=== PATIENT | male | born 1960 | race African-American/Black ===

== ENCOUNTER 2016-10-06 20:41 | Inpatient (IN) | payer OTHER ==
[2016-10-06 21:53] LABS: Hematocrit 41 % (42-52); Hemoglobin 13.5 g/dl (14.0-18.0); Mean Corpuscular HGB Conc 33 g/dl (31-36); Mean Corpuscular Hemoglobin 28 pg (27-31); Mean Corpuscular Volume 86 fL (80-94); Mean Platelet Volume 9 um3 (7.4-10.4); Red Blood Count 4.79 10^6/ul (4.0-5.4); Red Cell Distribution Width 16 % (10.5-15); White Blood Count 7.6 10^3/ul (3.5-10.8)
[2016-10-06 22:02] LABS: ALT 21 U/L (7-52); AST 39 U/L (13-39); Alkaline Phosphatase 71 U/L (34-104); Anion Gap 9 mmol/L (2-11); BUN/Creatinine Ratio 14.2 (8-20); Blood Urea Nitrogen 19 mg/dL (6-24); CO2 Carbon Dioxide 24 mmol/L (22-32); Calcium 9.2 mg/dL (8.6-10.3); Chloride 102 mmol/L (101-111); EGFR African American 71.2 (>60); EGFR Non-African American 55.3 (>60); Globulin 3.2 g/dL (2-4); Glucose 142 mg/dL (70-100); Potassium 3.4 mmol/L (3.5-5.0); Sodium 135 mmol/L (133-145); Total Protein 7.2 g/dL (6.4-8.9)
[2016-10-06 22:05] LABS: Acetaminophen < 15 mcg/mL; Alcohol < 10 mg/dL (<10); Salicylate < 2.50 mg/dL (<30)
[2016-10-06 22:15] LABS: TSH (Thyroid Stimulating Horm) 1.42 mcIU/mL (0.34-5.60)
--- NOTE | 2016-10-06 22:27 | RAD ---
INDICATION: Altered mental status COMPARISON: None TECHNIQUE: Noncontrast axial source images were acquired from the skull base to the vertex. FINDINGS: Ventricles/sulci: The ventricles and cisterns are normal in size and configuration for age. Brain parenchyma: There is no focal parenchymal finding, evidence of intracranial mass, or intracranial mass effect. Intracranial hemorrhage:None. Extra-axial spaces: There are no abnormal extra axial fluid collections or evidence of extra-axial mass. Calvarium: There is no calvarial fracture or other calvarial abnormality. Scalp: There is no evidence of scalp or extracalvarial soft tissue abnormality. Paranasal sinuses/mastoid: The paranasal sinuses and mastoid air cells are clear. Other: None. IMPRESSION: NEGATIVE EXAMINATION
--- NOTE | 2016-10-06 22:37 | ED ---
Fely Wade Michael, scribed for Blayne Finley MD on 10/06/16 at 2158 . Altered Mental Status - HPI Summary HPI Summary: 55 y/o male comes to the ED presenting with AMS that started one day ago. The pt 's sister was beside and reports that the pt was found walking on a highway in [place] by police. The sister received the call and picked him up in [place] and brought him to [place] because she is currently stationed in [place]. 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 Any aggravating and alleviating factors are unknown. He also presents with swelling in his right foot. The pt is former . 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 - History Of Current Complaint Chief Complaint: EDMentalHealth Stated Complaint: MHE Time Seen by Provider: 10/06/16 21:45 Hx Obtained From: Family/Mold Carrier - sister, Medical Records Hx From Patient Unobtainable Due To: Altered Mental Status Onset/Duration: Still Present Timing: Constant, Lasting Days Severity Initially: Moderate Severity Currently: Moderate Character: Responsiveness Aggravating Factor(s): Unknown Alleviating Factor(s): Unknown Associated Signs And Symptoms: Negative: Negative - right foot swelling. AMS. - Allergies/Home Medications Allergies/Adverse Reactions: Allergies Allergy/AdvReac Type Severity Reaction Status Date / Time No Known Allergies Allergy Verified 10/06/16 20:52 PMH/Surg Hx/FS Hx/Imm Hx Psychiatric History: Reports: Hx Depression, Hx Post Traumatic Stress Disorder Infectious Disease History: No Infectious Disease History: Denies: Traveled Outside the [place] in Last 30 Days - Family History Known Family History: Positive: None Family History: pt's sister karma FHx - Social History Occupation: Retired Lives: Alone Review of Systems - ROS Summary Review of Systems Summary: level 5 caveat; Patient will not give Review of systems. Mental health patient. Negative: Fever Positive: Other - right foot swelling. Neurological: Other - AMS All Other Systems Reviewed And Are Negative: Yes Physical Exam Triage Information Reviewed: Yes Vital Signs On Initial Exam: Initial Vitals Temp Pulse Resp BP Pulse Ox 98.4 F 69 16 143/94 98 10/06/16 20:45 10/06/16 20:45 10/06/16 20:45 10/06/16 20:45 10/06/16 20:45 Vital Signs Reviewed: Yes Appearance: Positive: Well-Appearing, No Pain Distress Skin: Positive: Warm Diagnostics - Vital Signs Vital Signs Temp Pulse Resp BP Pulse Ox 10/06/16 20:45 98.4 F 69 16 143/94 98 - Laboratory Lab Results: Lab Results 10/06/16 10/06/16 Range/Units 21:15 21:15 WBC 7.6 (3.5-10.8) 10^3/ul RBC 4.79 (4.0-5.4) 10^6/ul Hgb 13.5 L (14.0-18.0) g/dl Hct 41 L (42-52) % MCV 86 (80-94) fL MCH 28 (27-31) pg MCHC 33 (31-36) g/dl RDW 16 H (10.5-15) % Plt Count 229 (150-450) 10^3/ul MPV 9 (7.4-10.4) um3 Neut % (Auto) 65.6 (38-83) % Lymph % (Auto) 25.9 (25-47) % Crowley % (Auto) 6.4 (1-9) % Eos % (Auto) 1.4 (0-6) % Baso % (Auto) 0.7 (0-2) % Absolute Neuts (auto) 5.0 (1.5-7.7) 10^3/ul Absolute Lymphs (auto) 2.0 (1.0-4.8) 10^3/ul Absolute Monos (auto) 0.5 (0-0.8) 10^3/ul Absolute Eos (auto) 0.1 (0-0.6) 10^3/ul Absolute Basos (auto) 0.1 (0-0.2) 10^3/ul Absolute Nucleated RBC 0 10^3/ul Nucleated RBC % 0 Sodium 135 (133-145) mmol/L Potassium 3.4 L (3.5-5.0) mmol/L Chloride 102 (101-111) mmol/L Carbon Dioxide 24 (22-32) mmol/L Anion Gap 9 (2-11) mmol/L BUN 19 (6-24) mg/dL Creatinine 1.34 H (0.67-1.17) mg/dL Est GFR ( Amer) 71.2 (>60) Est GFR (Non-Af Amer) 55.3 (>60) BUN/Creatinine Ratio 14.2 (8-20) Glucose 142 H (70-100) mg/dL Calcium 9.2 (8.6-10.3) mg/dL Total Bilirubin 0.90 (0.2-1.0) mg/dL AST 39 (13-39) U/L ALT 21 (7-52) U/L Alkaline Phosphatase 71 (34-104) U/L Total Protein 7.2 (6.4-8.9) g/dL Albumin 4.0 (3.2-5.2) g/dL Globulin 3.2 (2-4) g/dL Albumin/Globulin Ratio 1.3 (1-3) TSH 1.42 (0.34-5.60) mcIU/mL Salicylates < 2.50 (<30) mg/dL Acetaminophen < 15 mcg/mL Serum Alcohol < 10 (<10) mg/dL Result Diagrams: 10/06/16 21:15 10/06/16 21:15 Lab Statement: Any lab studies that have been ordered have been reviewed, and results considered in the medical decision making process. - CT Brain CT CT Interpretation: No Acute Changes CT Interpretation Completed By: Radiologist Altered Mental Statu Course/Dx - Course Course Of Treatment: 55 yr old male found wandering, car missing. He has PTSD from being in with depression. He was carrying a sign saying need ride to next exit: [place], [place]. Mental health to see for further evaluations. - Diagnoses Discharge Diagnoses: Altered mental status, unspecified, Catatonia Discharge - Discharge Plan Condition: Good Disposition: OTHER Discharge Disposition Comment: sign out to dr Howard at 2300 with xrays, and psych eval pending. The documentation as recorded by the Fely logan Michael accurately reflects the service I personally performed and the decisions made by me, Blayne Finley MD.
--- NOTE | 2016-10-06 22:48 | RAD ---
INDICATION: Change in mental status. PTSD COMPARISON: None TECHNIQUE: PA and lateral views were obtained. FINDINGS: Bones/Soft Tissues: There are no acute bony findings. Cardiomediastinal: The cardiomediastinal silhouette is normal. Lungs: There are no infiltrates. Pleura: There are no pleural effusions. Other: None IMPRESSION: NO ACTIVE DISEASE.
--- NOTE | 2016-10-06 22:49 | RAD ---
INDICATION: Right ankle swelling COMPARISON: None TECHNIQUE: AP, lateral, and oblique views were obtained. FINDINGS: There is an old, healed, distal fibular fracture. There are no acute bony findings. The ankle mortise is intact. There is no significant radiographic soft tissue swelling. IMPRESSION: NO ACUTE BONY FINDINGS.
--- NOTE | 2016-10-06 22:50 | RAD ---
INDICATION: Possible pelvic injury COMPARISON: None TECHNIQUE: A single AP view of the pelvis is submitted. FINDINGS: Osseous structures: No acute bony findings SI joints and symphysis: Intact Soft tissues: Intact Other: None IMPRESSION: NEGATIVE EXAMINATION.
--- NOTE | 2016-10-06 22:50 | RAD ---
INDICATION: Possible foot injury COMPARISON: None TECHNIQUE: AP, lateral, and oblique views were obtained. FINDINGS: The bony structures, joint spaces, and soft tissues are normal for age. IMPRESSION: NEGATIVE EXAMINATION
[2016-10-07] LABS: Urine Bilirubin Negative (Negative); Urine Glucose Negative (Negative); Urine Nitrite Negative (Negative)
[2016-10-07 00:37] LABS: Benzodiazepine Urine Screen None Detected (None Detect)
[2016-10-07] MEDS ORDERED: BuPROPion XL* 150 MG TAB.XL PO ONE (14:07)
[2016-10-07] MEDS ORDERED: Sertraline* 50 MG TAB PO ONE (14:09)
--- NOTE | 2016-10-07 18:42 | PN ---
I, Michael Bautista, scribed for Jyothi Jones MD on 10/07/16 at 1140 . Progress Note - Progress Note Note: Patient signed out at shift change. Elevated blood pressure and creatinine noted. Patient evaluated in the flex unit. He is nonverbal, in no acute distress , RRR, lungs are clear to auscultation. Patient will be transferred to the [facility] in [place]. His mother is in the room and agrees with this plan. X-rays of his foot, ankle, pelvis, and chest were reviewed and negative for acute disease. EKG reviewed, NSR 64, nml AV and IV conduction, normal QTc, normal axis, TWI in III, non-specific ST/T-wave changes, no acute changes. No prior EKG for comparison. Patient was re-evaluated at 1350. Mother states that the neck pain he has at this time is normal for him. However, he needs to have his daily medication of 300mg bupropion and 50mg zoloft. 1838: Per Dinorah in Flex unit, will check K+ and CK. She will ask Dr. Montanez to attempt mental status exam, and then may give lorazepam po for catatonia per [facility], per Dinorah. Care to Dr. Aragon at 1900 at change of shift. DIAGNOSIS: CATATONIA, ALTERED MENTAL STATUS CONDITION: STABLE DISPOSITION: TRANSFER TO HIGHER LEVEL OF CARE FACILITY The documentation as recorded by the Michele logan Billy accurately reflects the service I personally performed and the decisions made by me, Jyothi Jones MD.
[2016-10-07] MEDS ORDERED: LORazepam TAB(*) 1 MG PO ONE ×2 (20:00→22:15)
--- NOTE | 2016-10-07 20:43 | PN ---
Progress Note - Progress Note Note: Mental Status Exam Mr Gallego is dressed in hospital scrubs. He has no signs of poor hygiene. He has grooming adequate to the setting and circumstance. He will not demonstrate clearly his orientation to person, place and time because he will not speak. He will not make eye contact. He will not report his mood nor whether he has any hallucinations or dangerous intent or plan. His affect is flat. His thought process is not ascertainable as he will not speak, though it appears impoverished per his overall behavior pattern, which is limited to sitting, eating small amounts of food, and toileting. He has normal gait and sits calmly with his mother. Attention, memory and overall intellectual functioning are likewise impossible to assess at this point as he has been entirely mute for the past 48 hours or more.
[2016-10-07] MEDS ORDERED: LORazepam TAB(*) 1 MG PO SCH (21:00)
--- NOTE | 2016-10-08 | ED ---
Robert Wade Adam, scribed for Jose Aragon on 10/07/16 at 2056 . Progress - Progress Note Progress Note: I discussed care of the patient with Dr. Eubanks (Neuro) at 20:45. He recommends that an EEG be done in the morning and he will come in for a consult in the morning as well. Course/Dx - Diagnoses Provider Diagnoses: Catatonia, Altered mental status, unspecified The documentation as recorded by the Robert logan Adam accurately reflects the service I personally performed and the decisions made by Margo mtz Emmanuel.
[2016-10-08] MEDS ORDERED: LORazepam TAB(*) 1 MG ONE (09:34)
[2016-10-08] MEDS ORDERED: traMADol TAB* 50 MG PO PRN (11:00)
[2016-10-08 15:08] LABS: Potassium 3.8 mmol/L (3.5-5.0)
--- NOTE | 2016-10-08 15:10 | CONS ---
NEUROLOGICAL CONSULTATION: DATE OF CONSULT: DATE OF DICTATION: 10/08/16 PATIENT OF: Dr. Aragon and Dr. Montanez. HISTORY OF PRESENT ILLNESS: This is a 55-year-old man I am asked to evaluate neurologically prior to a transfer to an outside psych center. History is from the sister and mother. His was left in the house to take care of her own mother, who has Alzheimer's. The patient has also been stressed because of some real estate property issues. The became aware that the patient was not at home and contacted his family up in [place], who went down to [place], to try to find him. In the interim, he was found walking on a highway in [place] by the police with a cardboard sign and they brought him up here for further psychiatric care. 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 He has had no prior episodes of catatonia. They note that he will interact with the family opening eyes on request and following some simple commands, but not speaking. He will also get up to go to the bathroom and to take a shower, but he is uncooperative with staff and since then, he does not respond and he has had some ongoing catatonic symptoms. PAST MEDICAL HISTORY: There has been no underlying medical problems that are known. MEDICATIONS: He is on: 1. Wellbutrin 300 a day currently. 2. Ativan 1 mg q.3 hours p.r.n. 3. Zoloft 50 mg daily. 4. Tramadol 50 mg q.8 hours p.r.n. ALLERGIES: He has no known drug allergies. FAMILY HISTORY: He has no relevant family history. SOCIAL HISTORY: He is retired. Has a , but apparently lives alone. There is only a brief note from Dr. Montanez, the psychiatrist, from October 07, but no _ ____ in the chart at this time. REVIEW OF SYSTEMS: He is unable to give a review of systems himself. PHYSICAL EXAM: Temperature 98.4, pulse 69, respirations 16, blood pressure 143/ 94. He appeared to be resting with his eyes closed. He did not follow any commands. Pupils were equal, round, reactive to light. 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 When I put his arm in a particular position, he would hold it, but he would not follow any commands. His strength in both extremities was at least 5-/5 and cannot be tested further due to lack of cooperation. Facies appeared symmetric. Reflexes were 1 and equal. Toes were equivocal to downgoing. Neck was supple. Chest: Clear. Cardiovascular: Regular rate and rhythm. Abdomen: Soft with positive bowel sounds. DIAGNOSTIC STUDIES/LAB DATA: His EEG was normal during the stay and appeared to be at one point awake and at another point asleep during the EEG. His CT scan was reviewed and was normal. He had a negative UA, negative tox screen, and alcohol screen. His CMP appeared normal with a glucose of 142. Normal thyroid. White count was 7.6, hematocrit 41, and platelets 229,000. IMPRESSION AND PLAN: Mr. Gallego did not have any apparent structural lesion or tendency towards seizure that would explain his recurrent condition, which I think is most likely secondary to psychiatric issues. Thank you for sharing his case. [id number]/[facility] #: [id number] ISMAEL
--- NOTE | 2016-10-08 18:15 | RAD ---
Indication: Inability to speak. CT of the brain was performed without IV contrast. Comparison is made with previous exam dated October 06, 2016. Ventricular structures are midline. No midline shift is noted. The extraction spaces are unremarkable. There is no evidence of intracranial mass or hemorrhage. No other high or low density lesions are identified. Mastoid air cells and paranasal sinuses are unremarkable. IMPRESSION: No intracranial mass or hemorrhage is noted. No changes noted since previous exam of October 06, 2016.
[2016-10-08 18:37] LABS: Troponin I 0.01 ng/mL (<0.04)
--- NOTE | 2016-10-09 02:47 | EEG ---
ELECTROENCEPHALOGRAPHY: DATE OF STUDY: 10/06/16 - EMERGENCY DEPT DATE OF DICTATION: 10/08/16 PATIENT OF: Dr. Montanez. CLINICAL PROBLEM: This is a 55-year-old man I am asked to evaluate for catatonia and cerebral seizures. MEDICATIONS: None listed. REPORT: With the patient awake, background cerebral activity consists of moderate amplitude posterior dominant 8 Hz rhythm. The patient falls asleep with background consisting of diffuse irregular delta and theta activity. Photic stimulation does not activate the record. No epileptiform potentials, focal abnormalities, or major asymmetries of background are noted. CLINICAL IMPRESSION: This awake and sleep EEG is within normal limits. [id number]/[facility] #: [id number] [facility]
--- NOTE | 2016-10-09 08:18 | PN ---
Progress Note - Progress Note Note: Mr Gallego remains mute, cried with family this morning. Family feels there has been a trigger back to PTSD symptoms. Family remain concerned that he needs inpatient hospitalization. Has not been receiving all of his usual medications per updated medication reconciliation by flex staff this morning: these will be ordered once confirmed. I have been following Mr Gallego daily from Sunday evening. ON each encounter he has remained as described in my documented mental status examination. Family has been with him throughout. I have reviewed medical reexaminations done 10.08.16, I appreciate Dr Eubanks's neurological consult finding no indications of a neurological component to his mutism and no sign of seizure activity with negative EEG. 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
[2016-10-09] MEDS: LORazepam TAB(*) 1 MG PO SCH ×4 (08:26→21:05)
[2016-10-09] MEDS: Sertraline* 50 MG TAB PO SCH (08:27)
[2016-10-09] MEDS: oxyCODONE/Acetamin 5/325 MG* TAB PO SCH ×2 (13:22→21:05)
[2016-10-10] MEDS ORDERED: BuPROPion XL* 150 MG TAB.XL PO SCH (09:00)
[2016-10-10] MEDS: Sertraline* 50 MG TAB PO SCH ×2 (09:52→09:53)
[2016-10-10] MEDS: oxyCODONE/Acetamin 5/325 MG* TAB PO SCH (09:59)
[2016-10-10] MEDS ORDERED: Docusate CAP* 100 MG PO PRN (12:08)
[2016-10-10] MEDS ORDERED: Al Hydrox/Mg Hydrox/Simet LIQ* 30 ML UDC PO PRN (17:27)
[2016-10-10] MEDS ORDERED: Nicotine Inhaler* 10 MG AMP INH PRN (17:27)
--- NOTE | 2016-10-10 17:27 | PN ---
Progress Note - Progress Note Note: Robbin Salas continues mute, though ED nursing staff reports he communicated request for pain med by text on his phone. When I met with him before I was contacted by ED nurse, he remained mute and noncommunicative, but in no apparent distress by kinesics. I discussed with his mother the open bed at [facility] if she would agree, as [facility] had made this a condition of admission. She did not agree. As there is a bed open on the [facility] and as no other option for transfer is now available after the [facility] reports their unit is now too acute to take that patient after requiring multiple tests and consultations as a condition of admission there.
[2016-10-10] MEDS: oxyCODONE/Acetamin 5/325 MG* TAB PO PRN ×2 (18:04→22:36)
[2016-10-10] MEDS: BuPROPion XL* 300 MG TAB.XL PO SCH (22:28)
[2016-10-11] MEDS: oxyCODONE/Acetamin 5/325 MG* TAB PO PRN (03:44)
[2016-10-11] MEDS: BuPROPion XL* 300 MG TAB.XL PO SCH ×2 (09:04→09:05)
[2016-10-11] MEDS: Sertraline* 50 MG TAB PO SCH (09:04)
[2016-10-11] MEDS ORDERED: oxyCODONE TAB* 5 MG TAB PO PRN (12:17)
[2016-10-11] MEDS: Ibuprofen TAB* 600 MG PO PRN ×2 (14:04→21:36)
[2016-10-11] MEDS: oxyCODONE TAB* 5 MG TAB PO PRN ×2 (14:04→21:34)
--- NOTE | 2016-10-11 17:54 | HP ---
ADMISSION HISTORY AND PHYSICAL NOTE: DATE OF ADMISSION: To the [address] [place] [address] [facility] on 10/10/16. DATE OF EVALUATION FOR ADMISSION: 10/11/16 IDENTIFICATION: Mr. Gallego is a -connected gentleman who was found by police wandering on a highway in [place] carrying a destination sign looking for a ride. He was confused, disorganized, and did not speak. He has a history of PTSD and injuries to his neck and hip resulting in pain, all of these from his service. His mother and sister are [facility] residents and brought him here when he was released by the [place] police because they wanted him to be close to them so they could help with his care. At first in the emergency department, the patient was not communicating at all, but later began communicating by text or by writing and hand gestures. He remains mute. He is showing improving signs of orientation in indicating degree and location of pain and interacting more with his family. He is able to attend to his ADLs independently. The patient's family reports that they have never seen him like this before and are very concerned and believe that something triggered his brain to "just shut down." The family was resistant to any transfer to a [facility] or other facility that would be posing a geographic barrier to their being involved in his care. The patient gave a written report through a questionnaire of his psychiatric symptoms. From the list offered, he checked off the following: Acting strangely ; dreading work; not offering affection; lacking followthrough; taking risks; fearing crowds, embarrassment, and losing loved ones; feeling agitated, anxious , depressed, helpless, stephen, unstable and feeling the lack of self-worth; lacking friends; having erratic thoughts; lacking focus; lacking organization; thinking of ; losing appetite and weight; needing little sleep; sleeping too little; and sweating, which he noted was an effect of meds. He reports past psychiatric history of care with Dr. Adair at [facility] , Dr. Reyes in private practice, and now with a new doctor at [facility], whose name he cannot remember, but who he has been seeing for ongoing meetings. He reports that he had never tried to harm himself, but has had thoughts of suicide and could not follow through because of hoahaoism lily. REVIEW OF PAST MEDICAL HISTORY: He notes only headaches. PAST MEDICAL HISTORY: He has had surgeries on his spine resulting in chronic pain in his spine, shoulders, and neck and limited mobility without pain. He also reports a recent injury to his left hip giving a level of pain of 8 to 10 and he says he has no knowledge of this injury by which it would seem he means he does not know how it occurred He was examined by staff in the emergency department when he first presented there on 10/06/16. Physical examination was limited due to mutism, but documented as normal across lungs, cardiac, abdomen, pelvis, neurological, and skin. Slight STS over right lateral malleolus was noted on examination of extremities, but with no increased warmth. No effusion and no bruise. Psychiatrically, he was noted as looking to be in a catatonic state. PAST SURGICAL HISTORY: He reports 2 cervical surgeries, a right knee surgery, a right shoulder surgery, lumbar herniated disk with no surgery yet. MEDICATIONS: He reports as current medications: 1. Zoloft. 2. Wellbutrin. 3. Ibuprofen. 4. Percocet. 5. Demerol. 6. Valium. 7. Tramadol. 8. Naprosyn, but does not list any doses. He did not fill out the table offered of medications previously tried. So, it is not clear if there had been prior trials of medications. ALLERGIES: He reports that he is allergic to MOBIC. FAMILY PSYCHIATRIC HISTORY: He has left blank. SOCIAL HISTORY: He writes includes being born in [place], raised in various states and countries due to family obligations. He has been 4 times; the first, 3 months; the second, 5 years; third, 2 years; and fourth, over 15 years. He has 2 sons ages 33 and 31. 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 He is not currently in school. 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 He denies ever any history of sexual, physical, emotional abuse or neglect of basic needs. He denies any abuse of illicit substances, alcohol, or tobacco. He reports history of diagnosis with PTSD. MENTAL STATUS EXAMINATION: He denies any hallucinations or dangerous intent or plan. He has average grooming and hygiene. He is mute, but will communicate by writing or texting. He presents with dysphoric affect and has reported something to the effect of "how can you be happy when you are in so much pain?" He has in his writing at this point evidence of a linear and goal directed thought process. His insight and judgment are impaired. His impulse control is intact. PAST PSYCHIATRIC HISTORY: He reports previous care at [facility] and past diagnosis of PTSD. He denies any history of suicide attempt or suicidal ideation. SUBSTANCE ABUSE HISTORY: He denies any abuse of alcohol, illicits, or tobacco. FAMILY PSYCHIATRIC HISTORY: Unknown. LEGAL HISTORY: Unknown. HISTORY OF AGGRESSION/VIOLENCE: Unknown. IMAGING STUDIES AND CONSULTATIONS PERFORMED IN THE EMERGENCY DEPARTMENT: Include an x-ray of the swollen right ankle that found no acute bony changes, a chest x-ray that found no active disease, a negative right foot x-ray with 3 views, a negative CT of the head, a negative pelvic x-ray, and ECG, which was noted by Dr. Jones in the emergency department as normal sinus rhythm 64, normal AV and IV conduction, normal QTc, normal axis, TWI in III, nonspecific ST -T wave changes, no acute changes, and no prior EKG for comparison. An EEG read as within normal limits awake and asleep. A neurologic consultation from Dr. Eubanks in the ED found no apparent structural lesion or tendency toward seizure that would explain his current condition which Dr Eubanks assessed as most likely secondary to psychiatric issues. Mr. Gallego has continued to report pain unimproved by Percocet and so, consultation has been requested from Dr. Mckenzie on this issue. I will defer physical reexamination for this patient who has had a thorough physical examination already in the emergency department pending med consult from Dr Mckenzie. MEDICATIONS ON ADMISSION: His medications at admission were determined to be: 1. Naproxen 500 mg p.o. b.i.d. p.r.n. pain. 2. Wellbutrin XL 300 mg p.o. daily. 3. Percocet 5/325 one tab p.o. q.4 hours. 4. Trazodone 25 to 100 mg p.o. at bedtime. 5. Zoloft 100 mg p.o. daily. CURRENT MEDICATIONS: The patient is currently on p.r.n.'s of Maalox, Colace, ibuprofen 600 q.6 hours as needed, nicotine inhaler. His medication regimen for pain has been modified to straight oxycodone 15 mg every 4 hours as needed for pain in separate p.r.n. dosings of 5 and 10 q.4 hours. Zoloft 50 mg daily and Wellbutrin XL 300 mg daily. ASSESSMENT AND PLAN: Robbin Gallego is a 55-year-old [facility] who has been admitted after being found wandering on a highway in [place] and taken into custody by police, transferred into care of his family who brought him to this area. He reports a history of post-traumatic stress disorder and depression. He is starting to communicate by text and writing after being entirely noncommunicative through the weekend. He has pain issues from spinal surgeries. He has had prior care at [facility]. 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 We will be gathering further collateral from family and from previous providers and will be looking to gather more written information from Mr. Gallego. Aftercare is likely to be return to services at [facility] once he is stabilized here. 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 [id number] #: [id number] MTDD
[2016-10-11] MEDS ORDERED: diPHENhydraMINE PO* 50 MG ONE (22:42)
[2016-10-12] MEDS ORDERED: diPHENhydraMINE PO* 50 MG PO PRN (00:33)
[2016-10-12] MEDS: Ibuprofen TAB* 600 MG PO PRN (08:44)
[2016-10-12] MEDS: BuPROPion XL* 300 MG TAB.XL PO SCH (08:45)
[2016-10-12] MEDS: oxyCODONE TAB* 5 MG TAB PO PRN (08:45)
[2016-10-12] MEDS: Sertraline* 50 MG TAB PO SCH (08:46)
--- NOTE | 2016-10-12 14:07 | PN ---
Subjective - Subjective Service Type: 20840 Hosp care 25 min moderate complexity Subjective: Robbin remains mute. He reports continued pain in his left hip, also lower back, neck and right shoulder, and the pain meds are 'not working'. He reports that it would be difficult to have an MRI as laying flat is challenging because of severe pain, and in the past has required anesthesia. He reports paranoia that the government or his commander might receive report of his behavior. As regards suicidal thoughts, he agrees that he has them, but 'life is important', so he would not act on them, and he is also prevented from action by his sabianist beliefs. He had a sign indicating he wanted to go to [place] , he says, because 'it came to me', and he does not know why. He reports that he last spoke when he was with his last week. He says she is upset at him because she does not understand why his mind changes. He also reports that his would be the best person to speak with about his psychiatric history. Objective - Appearance Appearance: Well Developed/Nourished Dysmorphic Features: No Hygiene: Normal Grooming: Well Kept - Behavior Psychomotor Activities: Abnormal-Decreased Exhibits Abnormal Movement: No - Attitude and Relatedness Attitude and Relatedness: Cooperative Eye Contact: Poor - Speech Quality: Unpressured - and absent - Mood Patient's Decription of Mood: "Not good because of pain" - Affect Observed Affect: Depressed Affect Consistent with: Dysphoria - Thought Process Patient's Thought Process: Coherent, Goal Directed, Impoverished Thought Content: Yes Passive Wish, Yes Paranoid Ideation, No Suicidal Planning, No Homicidal Ideation - Sensorium Experiencing Hallucinations: No, Sensorium is Clear Type of Hallucinations: Visual: No, Auditory: No, Command: No - Level of Consciousness Level of Consciousness: Alert Orientation: Yes Intact, Yes Orientated to Time, Yes Orientated to Place, Yes Orientated to Person - Impulse Control Impulse Control: Intact - Insight and Judgement Insight and Judgement: Poor - Group Participation Particating in Group Activities: No Group Participation Comments: only attended community meeting today - Medication Management Medication Management Adherence: Yes Assessment - Assessment Merits Inpatient Hospitalization: For Immediate Safety, For Stabilization, Diagnosis Determination, For Ongoing Evaluation, For Discharge Planning, Pending Safe DC Plan Inpatient DSM-IV Dx: Post-traumatic stress disorder with dissociative exacerbation, report of history of depression as well, significant contribution of pain to psychiatric symptoms. Clinical Impression: Day 1 on unit, 10.11.16/Day 6 since presentation to ED on 10.06.16 Robbin Gallego is a 55-year-old [employer] who has been admitted after being found wandering on a highway in [place] and taken into custody by police, transferred into care of his family who brought him to this area. He reports a history of post-traumatic stress disorder and depression. He is starting to communicate by text and writing after being entirely noncommunicative through the weekend. He has pain issues from spinal surgeries. He has had prior care at [facility]. 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 We will be gathering further collateral from family and from previous providers and will be looking to gather more written information from Mr. Gallego. Aftercare is likely to be return to services at [facility] once he is stabilized here. Day 2, 10.12.16 Robbin continues to communicate by writing here. He is reporting that his primary concern is pain. He has no recollection of how he lost his voice. He has had CT head imaging ruling out CT-visualizable acute intracranial process contributing to current presentation. He reports his would be best resource to better understand his psychiatric history, and might know if he has had a recent MRI giving more detailed head imaging. Plan - Plan Treatment Plan: Name: ROBBIN GALLEGO Birthdate: 1960 [id number] Gather collateral from his toward understanding psychiatric history and onset of mutism. Continue current meds. Monitor MS and safety. Pain management per hospitalist consultation in progress. Continued Medication Management: Continue Outpt Medication Medications: Current Medications Al Hydrox/Mg Hydrox/Simethicone (Maalox Plus*) 30 ml PO Q4H PRN PRN Reason: INDIGESTION Bupropion HCl (Bupropion Xl*) 300 mg PO DAILY MARIANGEL PRN Reason: Protocol Last Admin: 10/12/16 08:45 Dose: 300 mg Diphenhydramine HCl (Benadryl Po*) 50 mg PO Q6H PRN PRN Reason: PRURITIS Docusate Sodium (Colace Cap*) 100 mg PO DAILY PRN PRN Reason: CONSTIPATION Last Admin: 10/10/16 21:05 Dose: 100 mg Ibuprofen (Motrin Tab*) 600 mg PO Q6H PRN PRN Reason: PAIN Last Admin: 10/12/16 08:44 Dose: 600 mg Nicotine (Nicotine Inhaler*) 10 mg INH Q2H PRN PRN Reason: CRAVING Oxycodone HCl (Roxycodone Tab*) 5 mg PO Q4H PRN PRN Reason: pain 1-5 Oxycodone HCl (Roxycodone Tab*) 10 mg PO Q4H PRN PRN Reason: pain 6-10 Last Admin: 10/12/16 08:45 Dose: 10 mg Sertraline HCl (Zoloft*) 50 mg PO DAILY MARIANGEL Last Admin: 10/12/16 08:46 Dose: 50 mg - Discharge Plan Discharge Plan: Outpatient Follow Up
[2016-10-12] MEDS ORDERED: Cyclobenzaprine TAB* 10 MG PO PRN (16:53)
--- NOTE | 2016-10-12 17:08 | PN ---
Progress Note - Progress Note Note: Asked to help manage the patient's L groin/hip pain. He wrote to me that he fell out a 2 story building but that he does not really remember. He has been having severe L hip/groin pain. He points to the pain wrapping around his upper thigh. He describes having spasms as well. No burning pain. He has had previous neck surgery but non on his lumbar spine. Will add oxycontin 10mg BID and flexeril 10mg TID prn spasms to the current regimen. Check lumbosacral spine X- rays and L hip X-ray. The hospitalist service will follow up to see how his pain is doing.
[2016-10-12] MEDS ORDERED: oxyCODONE SR TAB(*) 10 MG TAB.SR PO ONE (19:00)
--- NOTE | 2016-10-12 20:35 | RAD ---
INDICATION: Low back and left hip COMPARISON: X-ray of the pelvis dated October 06, 2016 TECHNIQUE: 6 views of the lumbar spine and 2 views of the left hip were obtained. FINDINGS: The vertebra are in normal alignment. No fracture is seen. Disc spaces appear maintained. Degenerative changes of the left hip include joint space narrowing and sclerotic change of the acetabular roof. There is a small degree of marginal osteophyte formation. The bones of the hips are otherwise intact and appropriately aligned. IMPRESSION: No evidence of fracture or subluxation.
[2016-10-13] MEDS ORDERED: oxyCODONE SR TAB(*) 10 MG TAB.SR PO SCH (09:00)
[2016-10-13] MEDS: BuPROPion XL* 300 MG TAB.XL PO SCH (09:31)
[2016-10-13] MEDS: Sertraline* 50 MG TAB PO SCH (09:32)
[2016-10-13] MEDS: Ibuprofen TAB* 600 MG PO PRN (11:27)
[2016-10-13] MEDS: oxyCODONE TAB* 5 MG TAB PO PRN (11:27)
--- NOTE | 2016-10-13 16:55 | PN ---
Subjective - Subjective Service Type: 39692 Hosp care 25 min moderate complexity Subjective: Vee continues to report 10/10 left hip pain, a 'busted' 2d R toe, and continued spinal pain, but the hip pain is the worst. He would like an MRI of the hip. His mother has asked that he get a cortisone injection of the hip. He remains mute but freely communicative by writing. He reports that hanging would be possible here, but he does not think he would do it. He reports continued poor mood due to pain. He asked that I call his and ask her 7 specific questions as to whether he had any violent dreams/nightmares, and irritablity/anger or changes in behavior , and violent outbursts, any fantasy talk/unusual acting out, and confusion/ rambling when talking, or any memory loss. I called her and she reported no to all of the above. He also wanted to know from her how much time he spends alone. She reported that she did think he was a 'loner', but that he last spoke with her after she had found evidence of 'sexting' on his phone and confronted him with it. She reports that he denied wrongdoing, she asked him to leave, and he last communicated with her by text that 'I always thought suicide was the better option', though it was not clear to her better than what. She replied but he did not respond to her text. He had been speaking on 10.05.16 before he left her. She reports they have been since 2001, that his mother took his son away from him for unknown reasons when they were dating in 2000 and that this may have been traumatic. She does not know of any other history of trauma. She does not know details of his psychiatric history beyond that he was seeing a psychiatrist in [place]. ' She reports that he has had a lot of hip pain over the last year. She did not mention a particular injury. She reports he had also recently had an EKG that was negative when he complained of chest pain. His is named Emigdio (pronounce PEG). Objective - Appearance Appearance: Well Developed/Nourished Dysmorphic Features: No Hygiene: Normal Grooming: Well Kept - Behavior Psychomotor Activities: Normal Exhibits Abnormal Movement: No - Attitude and Relatedness Attitude and Relatedness: Cooperative Eye Contact: Fair - Speech Quality: Unpressured - and not occuring since 10.05.16 - Mood Patient's Decription of Mood: Not good because of pain - Affect Observed Affect: Depressed Affect Consistent with: Dysphoria - Thought Process Patient's Thought Process: Coherent, Goal Directed Thought Content: Yes Passive Wish, Yes Suicidal Planning - in stating he ' could' hang himself here but does not think he would, Yes Paranoid Ideation - concerned about report to command, No Homicidal Ideation - Sensorium Experiencing Hallucinations: No, Sensorium is Clear Type of Hallucinations: Visual: No, Auditory: No, Command: No - Level of Consciousness Level of Consciousness: Alert Orientation: Yes Intact, Yes Orientated to Time, Yes Orientated to Place, Yes Orientated to Person - Impulse Control Impulse Control: Intact - Insight and Judgement Insight and Judgement: Impaired - Group Participation Particating in Group Activities: No - Medication Management Medication Management Adherence: Yes Assessment - Assessment Merits Inpatient Hospitalization: For Immediate Safety, For Stabilization, Diagnosis Determination, To Initiate Treatment, For Ongoing Evaluation, For Discharge Planning, Pending Safe DC Plan Inpatient DSM-IV Dx: Post-traumatic stress disorder with dissociative exacerbation, report of history of depression as well, significant contribution of pain to psychiatric symptoms. Clinical Impression: Day 1 on unit, 10.11.16/Day 6 since presentation to ED on 10.06.16 Vee Gallego is a 55-year-old [employer] who has been admitted after being found wandering on a highway in [place] and taken into custody by police, transferred into care of his family who brought him to this area. He reports a history of post-traumatic stress disorder and depression. He is starting to communicate by text and writing after being entirely noncommunicative through the weekend. He has pain issues from spinal surgeries. He has had prior care at [facility]. 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 We will be gathering further collateral from family and from previous providers and will be looking to gather more written information from Mr. Gallego. Aftercare is likely to be return to services at [facility] once he is stabilized here. Day 2, 10.12.16 Vee continues to communicate by writing here. He is reporting that his primary concern is pain. He has no recollection of how he lost his voice. He has had CT head imaging ruling out CT-visualizable acute intracranial process contributing to current presentation. He reports his would be best resource to better understand his psychiatric history, and might know if he has had a recent MRI giving more detailed head imaging. Day 08/23, 10.13.16 Vee reports in writing continued depressed mood attributed to pain, with suicidal ideation. Collateral from his indicates that the precipitant event to his mutism, amnesia and wandering is her telling him she did not want to continue in their marriage because of text messages she found on his phone indicating sexual activity with others of unknown gender. He reports continued severe pain particularly in his left hip. Plan - Plan Treatment Plan: Name: VEE GALLEGO Birthdate: 1960 [id number] Continue current meds. Monitor MS and safety. Pain management per hospitalist consultation in progress, with requests from family re MRI and cortisone injection conveyed to Dr Ibanez. Will defer on broaching issue of alleged infidelity and threatened divorce until Sunday. Continued Medication Management: Continue Outpt Medication Medications: Current Medications Al Hydrox/Mg Hydrox/Simethicone (Maalox Plus*) 30 ml PO Q4H PRN PRN Reason: INDIGESTION Bupropion HCl (Bupropion Xl*) 300 mg PO DAILY MARIANGEL PRN Reason: Protocol Last Admin: 10/13/16 09:31 Dose: 300 mg Cyclobenzaprine HCl (Flexeril Tab*) 10 mg PO TID PRN PRN Reason: SPASMS Diphenhydramine HCl (Benadryl Po*) 50 mg PO Q6H PRN PRN Reason: PRURITIS Docusate Sodium (Colace Cap*) 100 mg PO DAILY PRN PRN Reason: CONSTIPATION Last Admin: 10/10/16 21:05 Dose: 100 mg Ibuprofen (Motrin Tab*) 600 mg PO Q6H PRN PRN Reason: PAIN Last Admin: 10/13/16 11:27 Dose: 600 mg Nicotine (Nicotine Inhaler*) 10 mg INH Q2H PRN PRN Reason: CRAVING Oxycodone HCl (Roxycodone Tab*) 5 mg PO Q4H PRN PRN Reason: pain 1-5 Oxycodone HCl (Roxycodone Tab*) 10 mg PO Q4H PRN PRN Reason: pain 6-10 Last Admin: 10/13/16 11:27 Dose: 10 mg Oxycodone HCl (Oxycontin(*)) 10 mg PO Q12HR [facility] Last Admin: 10/13/16 09:32 Dose: 10 mg Sertraline HCl (Zoloft*) 50 mg PO DAILY [facility] Last Admin: 10/13/16 09:32 Dose: 50 mg - Discharge Plan Discharge Plan: Outpatient Follow Up
--- NOTE | 2016-10-13 16:56 | PN ---
Progress Note - Progress Note Note: The patient states that oxycodone made no difference in his pain. He thought ibuprofen 800 mg rather than 600 mg might help. On exam there is no pain with raising his L leg, mild pain with abduction L leg , no tenderness. He indicates the pain is in a circumferential area at his upper thigh. I have stopped the oxycodone as it did not help. I increased the ibuprofen dose and made it scheduled rather than PRN. Iordered a ESR and CRP.
[2016-10-13] MEDS: Lidocaine PATCH 5%* 1 PATCH TRANSDERM SCH ×2 (19:16→22:32)
[2016-10-13] MEDS: Ibuprofen TAB* 800 MG PO SCH (22:32)
[2016-10-14] MEDS ORDERED: Lidocaine Patch REMOVE* 1 NOTE MISC PATCH OFF SCH (06:00)
[2016-10-14 08:07] LABS: C Reactive Protein 19.26 mg/L (< 5.00); Calcium 9.5 mg/dL (8.6-10.3); EGFR African American 65.5 (>60); EGFR Non-African American 50.9 (>60); Potassium 4.3 mmol/L (3.5-5.0)
[2016-10-14] MEDS: Ibuprofen TAB* 800 MG PO SCH ×3 (09:09→20:39)
[2016-10-14] MEDS: BuPROPion XL* 300 MG TAB.XL PO SCH (09:09)
[2016-10-14] MEDS: Sertraline* 50 MG TAB PO SCH (09:10)
[2016-10-14] MEDS: LORazepam TAB(*) 1 MG PO SCH ×2 (11:06→11:07)
[2016-10-14] MEDS ORDERED: LORazepam INJ* 2 MG/ML 1 ML VIAL IV PUSH PRN (13:41)
--- NOTE | 2016-10-14 13:47 | PN ---
Progress Note - Progress Note Note: Patient states the pain is about the same as yesterday. He sees no benefit of lidocaine patch. He again request MRI. He states he has hardware from cervical surgery about 10 yrs ago, has had MRI's since then, but states he had "anesthesia" for them. Not elevated ESR and CRP. MRI L hip ordered, also lorazepam 1 mg IV one dose. He will need a saline lock for that, which should be removed immediately after the MRI.
[2016-10-15] MEDS: Acetaminophen TAB* 325 MG PO PRN (00:25)
[2016-10-15] MEDS ORDERED: Acetaminophen TAB* 325 MG ONE (00:26)
[2016-10-15] MEDS: Ibuprofen TAB* 800 MG PO SCH ×4 (08:33→20:06)
[2016-10-15] MEDS: Sertraline* 50 MG TAB PO SCH (08:33)
[2016-10-15] MEDS: BuPROPion XL* 300 MG TAB.XL PO SCH (08:34)
[2016-10-15] MEDS ORDERED: LORazepam INJ* 2 MG/ML 1 ML VIAL IM PRN (11:50)
--- NOTE | 2016-10-15 13:14 | PN ---
Subjective - Subjective Subjective: Robbin was seen today on follow-up, under the clinical supervision of Dr. Joe Fragoso. Pt. communicates using writing. He is acknowledging that his pain has been impacting his sleep. He is scheduled for an MRI in the morning. He is reporting that his mood is still being impacted by the unresolved pain. Denies anxiety when questioned re: same. Objective - Appearance Dysmorphic Features: No Hygiene: Normal Grooming: Well Kept - Behavior Psychomotor Activities: Normal Exhibits Abnormal Movement: No - Attitude and Relatedness Attitude and Relatedness: Cooperative Eye Contact: Fair - Speech Quality: Unpressured - Non-verbal - Mood Patient's Decription of Mood: "Okay" - Affect Observed Affect: Constricted Affect Consistent with: Dysphoria - Thought Process Patient's Thought Process: Goal Directed Thought Content: No Passive Wish, No Suicidal Planning - Denies, No Homicidal Ideation, No Paranoid Ideation - Sensorium Experiencing Hallucinations: No, Sensorium is Clear Type of Hallucinations: Visual: No - Denies, Auditory: No - Denies, Command: No - Level of Consciousness Level of Consciousness: Alert Orientation: Yes Intact - Impulse Control Impulse Control: Intact - Insight and Judgement Insight and Judgement: Fair Assessment - Assessment Inpatient DSM-IV Dx: Post-traumatic stress disorder with dissociative exacerbation, report of history of depression as well, significant contribution of pain to psychiatric symptoms. Clinical Impression: Robbin continues to note pain which he indicates (in writing) is causing worsening of his mod symptoms. Continues to be followed medically for pain symptoms. MRI is pending for diagnostic clarification. No new mental health symptoms at present. Plan - Plan Treatment Plan: Name: ROBBIN SWEET Birthdate: 1960 [id number] Medications: Current Medications Acetaminophen (Tylenol Tab*) 650 mg PO Q4H PRN PRN Reason: PAIN Last Admin: 10/15/16 00:25 Dose: 650 mg Al Hydrox/Mg Hydrox/Simethicone (Maalox Plus*) 30 ml PO Q4H PRN PRN Reason: INDIGESTION Bupropion HCl (Bupropion Xl*) 300 mg PO DAILY [facility] PRN Reason: Protocol Last Admin: 10/15/16 08:34 Dose: 300 mg Cyclobenzaprine HCl (Flexeril Tab*) 10 mg PO TID PRN PRN Reason: SPASMS Diphenhydramine HCl (Benadryl Po*) 50 mg PO Q6H PRN PRN Reason: PRURITIS Docusate Sodium (Colace Cap*) 100 mg PO DAILY PRN PRN Reason: CONSTIPATION Last Admin: 10/10/16 21:05 Dose: 100 mg Ibuprofen (Motrin Tab*) 800 mg PO TID [facility] Last Admin: 10/15/16 08:37 Dose: Not Given Lorazepam (Ativan Inj*) 1 mg IM Q24H PRN PRN Reason: ANXIETY Nicotine (Nicotine Inhaler*) 10 mg INH Q2H PRN PRN Reason: CRAVING Sertraline HCl (Zoloft*) 50 mg PO DAILY [facility] Last Admin: 10/15/16 08:33 Dose: 50 mg
[2016-10-16] MEDS: BuPROPion XL* 300 MG TAB.XL PO SCH (09:24)
[2016-10-16] MEDS: Ibuprofen TAB* 800 MG PO SCH ×3 (09:24→23:49)
[2016-10-16] MEDS: Sertraline* 50 MG TAB PO SCH (09:24)
--- NOTE | 2016-10-16 15:08 | PN ---
Subjective - Subjective Service Type: 47204 Hosp care 35 min high complexity Subjective: Robbin and I met today to go over what his reported to me. I conveyed to him she had told me that she had found texts on his phone that she took as indicating that he had been unfaithful. He reported he was surprised by this as he had erectile dysfunction from Zoloft. He reported feeling overwhelmed by this news. He could not state clearly to me that he would maintain safety on the unit, and could not say specifically that he would not hang himself as he had indicated to me he could but would not do on the bathroom door. Due to this , MRI of hip and brain has been rescheduled for tomorrow morning at 10:30 am to allow time to monitor his behavior to have a better gauge of his safety before going off the floor. Staff is aware of his response to the news conveyed to him and are watching him closely. Objective - Appearance Appearance: Well Developed/Nourished Dysmorphic Features: No Hygiene: Normal Grooming: Well Kept - Behavior Psychomotor Activities: Normal Exhibits Abnormal Movement: No - Attitude and Relatedness Attitude and Relatedness: Cooperative Eye Contact: Fair - Speech Quality: Unpressured - as in currently absent - Mood Patient's Decription of Mood: "I don't know" - after receiving news of what transpired on 10.05.16 with his - Affect Observed Affect: Depressed Affect Consistent with: Dysphoria - Thought Process Patient's Thought Process: Coherent, Goal Directed Thought Content: Yes Passive Wish - report of suicidality unclear, reports feeling overwhelmed, Yes Suicidal Planning - and does not state he is safe from SI, No Homicidal Ideation, No Paranoid Ideation - Sensorium Experiencing Hallucinations: No, Sensorium is Clear Type of Hallucinations: Visual: No, Auditory: No, Command: No - Level of Consciousness Level of Consciousness: Alert Orientation: Yes Intact, Yes Orientated to Time, Yes Orientated to Place, Yes Orientated to Person - Impulse Control Impulse Control: Tenuous - Insight and Judgement Insight and Judgement: Poor - Group Participation Particating in Group Activities: Yes - Medication Management Medication Management Adherence: Yes Assessment - Assessment Merits Inpatient Hospitalization: For Immediate Safety, For Stabilization, For Ongoing Evaluation, For Discharge Planning, Pending Safe DC Plan Inpatient DSM-IV Dx: Post-traumatic stress disorder with dissociative exacerbation, report of history of depression as well, significant contribution of pain to psychiatric symptoms. Clinical Impression: Day 1 on unit, 10.11.16/Day 6 since presentation to ED on 10.06.16 Robbin Gallego is a 55-year-old [facility] who has been admitted after being found wandering on a [place] in [place] and taken into custody by police, transferred into care of his family who brought him to this area. He reports a history of post-traumatic stress disorder and depression. He is starting to communicate by text and writing after being entirely noncommunicative through the weekend. He has pain issues from spinal surgeries. He has had prior care at [facility]. 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 We will be gathering further collateral from family and from previous providers and will be looking to gather more written information from Mr. Gallego. Aftercare is likely to be return to services at [facility] once he is stabilized here. Day 2, 10.12.16 Robbin continues to communicate by writing here. He is reporting that his primary concern is pain. He has no recollection of how he lost his voice. He has had CT head imaging ruling out CT-visualizable acute intracranial process contributing to current presentation. He reports his would be best resource to better understand his psychiatric history, and might know if he has had a recent MRI giving more detailed head imaging. Day 08/23, 10.13.16 Robbin reports in writing continued depressed mood attributed to pain, with suicidal ideation. Collateral from his indicates that the precipitant event to his mutism, amnesia and wandering is her telling him she did not want to continue in their marriage because of text messages she found on his phone indicating sexual activity with others of unknown gender. He reports continued severe pain particularly in his left hip. Day 11/24, 10.16. Robbin is scheduled for MRI hip, and I added head/brain as there has been request of this by family and it is possible that there is something to be found by MRI that eluded CT scan resolution to tell us of a neurological cause of his mutism, though it seems more likely of purely psychological origin as dissociative phenomenon of PTSD under the stress of his accusing him of infidelity. He reported today that the trauma behind his PTSD was his spinal injuries in the [place]. He currently reports that his mind is spinning and he cannot give accurate report as to safety after hearing of his 's accusation , which he says is false. He and his family have also requested transfer to a [facility] in [place], which I have no objection to if this transfer can be done. We will be monitoring him closely for safety concerns. Plan - Plan Treatment Plan: Name: ROBBIN GALLEGO Birthdate: 1960 [id number] Continue current meds. Monitor MS and safety. Pain management per hospitalist , MRI hip pending. Broached issue of alleged infidelity and threatened divorce today. Staff will offer support in processing this distressing information. Medications: Current Medications Acetaminophen (Tylenol Tab*) 650 mg PO Q4H PRN PRN Reason: PAIN Last Admin: 10/15/16 00:25 Dose: 650 mg Al Hydrox/Mg Hydrox/Simethicone (Maalox Plus*) 30 ml PO Q4H PRN PRN Reason: INDIGESTION Bupropion HCl (Bupropion Xl*) 300 mg PO DAILY [facility] PRN Reason: Protocol Last Admin: 10/16/16 09:24 Dose: 300 mg Cyclobenzaprine HCl (Flexeril Tab*) 10 mg PO TID PRN PRN Reason: SPASMS Last Admin: 10/15/16 20:32 Dose: 10 mg Diphenhydramine HCl (Benadryl Po*) 50 mg PO Q6H PRN PRN Reason: PRURITIS Docusate Sodium (Colace Cap*) 100 mg PO DAILY PRN PRN Reason: CONSTIPATION Last Admin: 10/10/16 21:05 Dose: 100 mg Ibuprofen (Motrin Tab*) 800 mg PO TID [facility] Last Admin: 10/16/16 13:48 Dose: Not Given Lorazepam (Ativan Inj*) 1 mg IM Q24H PRN PRN Reason: ANXIETY Nicotine (Nicotine Inhaler*) 10 mg INH Q2H PRN PRN Reason: CRAVING Sertraline HCl (Zoloft*) 50 mg PO DAILY [facility] Last Admin: 10/16/16 09:24 Dose: 50 mg - Discharge Plan Discharge Plan: Inpatient Hospitalization - possible transfer [place] [facility].
[2016-10-17] MEDS: LORazepam TAB(*) 1 MG PO SCH ×4 (07:29→21:07)
[2016-10-17] MEDS: oxyCODONE/Acetamin 5/325 MG* TAB PO SCH (07:31)
[2016-10-17] MEDS: Sertraline* 50 MG TAB PO SCH (09:45)
[2016-10-17] MEDS: BuPROPion XL* 300 MG TAB.XL PO SCH (09:45)
[2016-10-17] MEDS: Ibuprofen TAB* 800 MG PO SCH ×3 (09:48→21:08)
[2016-10-17] MEDS ORDERED: LORazepam TAB(*) 1 MG ONE (10:40)
[2016-10-17] MEDS ORDERED: LORazepam TAB(*) 1 MG PO ONE (10:40)
--- NOTE | 2016-10-17 10:47 | PN ---
Subjective - Subjective Service Type: 56009 Hosp care 15 min low complexity Subjective: Robbin reports remission of SI that had been provoked by news of his saying their marriage was over, leading to his mutism and amnesia for that event. He reports that a good movie shown on the unit last night helped him to feel better. He reports that only sharp pain will provoke any vocalization. He reports being frustrated that he will not be anesthetized for imaging, and that he cannot lay flat due to pain from his spine injury, so he does not think it is going to work. He reports that prior attempts have failed with use of pillows/bolsters. He complains of having waited 5 days for the MRI. He complains of nightmares the past 2 nights leading to changing his sweat drenched shirt on both nights. He agrees to a trial of prazosin or clonidine. He reports this morning being startled by an apparition of his brother, whom he has not seen in years, standing over him for a moment. He reports concern that the government is following him. He says he has seen an agent of the government in a 2 door black [employer] with [employer] following him. Objective - Appearance Appearance: Well Developed/Nourished Dysmorphic Features: No Hygiene: Normal Grooming: Well Kept - Behavior Psychomotor Activities: Normal Exhibits Abnormal Movement: No - Attitude and Relatedness Attitude and Relatedness: Cooperative Eye Contact: Fair - Speech Quality: Unpressured - still absent - Mood Patient's Decription of Mood: "Frustrated" - with focus on inadquate accomodation for MRI - Affect Observed Affect: Depressed Affect Consistent with: Dysphoria - Thought Process Patient's Thought Process: Coherent, Goal Directed Thought Content: Yes Passive Wish, No Suicidal Planning - remitted since last night, No Homicidal Ideation, No Paranoid Ideation - Sensorium Experiencing Hallucinations: Yes Type of Hallucinations: Visual: Yes - but singular and momentary as described above, Auditory: No, Command: No - Level of Consciousness Level of Consciousness: Alert Orientation: Yes Intact, Yes Orientated to Time, Yes Orientated to Place, Yes Orientated to Person - Impulse Control Impulse Control: Intact - Insight and Judgement Insight and Judgement: Poor - Group Participation Particating in Group Activities: No - Medication Management Medication Management Adherence: Yes Assessment - Assessment Merits Inpatient Hospitalization: For Immediate Safety, For Stabilization, Diagnosis Determination, For Ongoing Evaluation, For Discharge Planning, Pending Safe DC Plan Inpatient DSM-IV Dx: Post-traumatic stress disorder with dissociative exacerbation, report of history of depression as well, significant contribution of pain to psychiatric symptoms. Clinical Impression: Day 1 on unit, 10.11.16/Day 6 since presentation to ED on 10.06.16 Robbin Gallego is a 55-year-old [facility] who has been admitted after being found wandering on a highway in [place] and taken into custody by police, transferred into care of his family who brought him to this area. He reports a history of post-traumatic stress disorder and depression. He is starting to communicate by text and writing after being entirely noncommunicative through the weekend. He has pain issues from spinal surgeries. He has had prior care at [facility]. 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 We will be gathering further collateral from family and from previous providers and will be looking to gather more written information from Mr. Gallego. Aftercare is likely to be return to services at [facility] once he is stabilized here. Day 2, 10.12.16 Robbin continues to communicate by writing here. He is reporting that his primary concern is pain. He has no recollection of how he lost his voice. He has had CT head imaging ruling out CT-visualizable acute intracranial process contributing to current presentation. He reports his would be best resource to better understand his psychiatric history, and might know if he has had a recent MRI giving more detailed head imaging. Day 08/23, 10.13.16 Robbin reports in writing continued depressed mood attributed to pain, with suicidal ideation. Collateral from his indicates that the precipitant event to his mutism, amnesia and wandering is her telling him she did not want to continue in their marriage because of text messages she found on his phone indicating sexual activity with others of unknown gender. He reports continued severe pain particularly in his left hip. Day 11/24, 10.16.16 Robbin is scheduled for MRI hip, and I added head/brain as there has been request of this by family and it is possible that there is something to be found by MRI that eluded CT scan resolution to tell us of a neurological cause of his mutism, though it seems more likely of purely psychological origin as dissociative phenomenon of PTSD under the stress of his accusing him of infidelity. He reported today that the trauma behind his PTSD was his spinal injuries in the [place]. He currently reports that his mind is spinning and he cannot give accurate report as to safety after hearing of his 's accusation , which he says is false. He and his family have also [facility] [place], which I have no objection to if this transfer can be done. We will be monitoring him closely for safety concerns. Day 12/25, 10.17.16 Robbin remains mute, depressed and suicidal, though with recent remission of plan. We will attempt imaging today of L hip and brain. I have informed MR technicians of Robbin' concern, and have ordered for him a 2d 1 mg dose of lorazepam in addition to the 1 mg IM dose given under hospitalist's order. Discharge planning is toward transfer to a [facility] unit nearer to his home per family request, though the odds of success seem low. More likely he will be discharged from this unit once safety concerns have remitted. Plan - Plan Treatment Plan: Name: ROBBIN GALLEGO Birthdate: 1960 [id number] Continue current meds. Monitor MS and safety. Pain management per hospitalist , MRI hip pending. Broached issue of alleged infidelity and threatened divorce yesterday, reports partial recovery from being initially overwhelmed. He refused imaging today due to pain in laying flat. Will address this issue with the hospitalist covering him. Medications: Current Medications Acetaminophen (Tylenol Tab*) 650 mg PO Q4H PRN PRN Reason: PAIN Last Admin: 10/15/16 00:25 Dose: 650 mg Al Hydrox/Mg Hydrox/Simethicone (Maalox Plus*) 30 ml PO Q4H PRN PRN Reason: INDIGESTION Bupropion HCl (Bupropion Xl*) 300 mg PO DAILY [facility] PRN Reason: Protocol Last Admin: 10/17/16 09:45 Dose: 300 mg Cyclobenzaprine HCl (Flexeril Tab*) 10 mg PO TID PRN PRN Reason: SPASMS Last Admin: 10/15/16 20:32 Dose: 10 mg Diphenhydramine HCl (Benadryl Po*) 50 mg PO Q6H PRN PRN Reason: PRURITIS Docusate Sodium (Colace Cap*) 100 mg PO DAILY PRN PRN Reason: CONSTIPATION Last Admin: 10/10/16 21:05 Dose: 100 mg Ibuprofen (Motrin Tab*) 800 mg PO TID [facility] Last Admin: 10/17/16 09:48 Dose: Not Given Lorazepam (Ativan Inj*) 1 mg IM Q24H PRN PRN Reason: ANXIETY Last Admin: 10/17/16 09:57 Dose: 1 mg Lorazepam (Ativan Tab(*)) 1 mg PO ONCE ONE Stop: 10/17/16 10:41 Nicotine (Nicotine Inhaler*) 10 mg INH Q2H PRN PRN Reason: CRAVING Sertraline HCl (Zoloft*) 50 mg PO DAILY [facility] Last Admin: 10/17/16 09:45 Dose: 50 mg - Discharge Plan Discharge Plan: Inpatient Hospitalization - attempting transfer to [facility] per pt request
--- NOTE | 2016-10-17 14:22 | PN ---
Hospitalist Progress Note Patient evaluate this afternoon. Says he continues to have LLE pain with "forward rotation". Pain when he steps with outstretched leg. No numbness or tingling. Cannot recall events that caused the pain but thinks he had some kind of trauma as he says his R toe was "busted up" too. On exam, no external rotation noted at baseline, pain elicited with hip flexion against resistance and some with rolling the leg, no sensory level, no ecchymoses noted Patient states he cannot have MRI without anesthesia due to his chronic back/ neck pain although during my exam he has no problem laying flat in his bed. I told the patient I do not think an MRI is necessary at this point if he is going to require anesthesia. I told him to restart the Ibuprofen which he has been refusing due to "upset stomach", will start PPI for short term therapy for the next few days to 1 week or so. Can continue tylenol and flexeril. Will not restart narcotics. Will get a CT scan of the pelvis as a middle ground. If the pain persists can consider getting an Orthopedic evaluation to see if they feel MRI with anesthesia is necessary as I do not at this point.
--- NOTE | 2016-10-17 15:08 | RAD ---
INDICATION: Left hip pain. Osteoarthritis COMPARISON: Left hip October 12, 2016 TECHNIQUE: Noncontrast axial source images were obtained from the iliac crests through the symphysis pubis. FINDINGS: There are sclerotic and cystic changes about the left femoral head with early subchondral collapse consistent with avascular necrosis. On the right there are similar findings although not as severe. There is underlying atherosclerotic change with mild atrophic change about each acetabula with mild hypertrophic bony change and sclerosis. There is degenerative disc disease L5-S1 with moderate narrowing and vacuum disc phenomena. No free fluid or adenopathy is seen. The noncontrast CT appearance of the bowel is unremarkable. The superficial soft tissues appear normal. The bladder appears normal. IMPRESSION: CT FINDINGS OF AVASCULAR NECROSIS LEFT GREATER THAN RIGHT
[2016-10-17] MEDS: Omeprazole CAP* 20 MG PO SCH (15:25)
[2016-10-17] MEDS: cloNIDine TAB* 0.1 MG PO SCH (21:08)
[2016-10-18] MEDS: Omeprazole CAP* 20 MG PO SCH (06:09)
[2016-10-18] MEDS: BuPROPion XL* 300 MG TAB.XL PO SCH (08:17)
[2016-10-18] MEDS: Ibuprofen TAB* 800 MG PO SCH ×3 (08:18→21:16)
[2016-10-18] MEDS: LORazepam TAB(*) 1 MG PO SCH ×3 (08:18→21:17)
[2016-10-18] MEDS: Sertraline* 50 MG TAB PO SCH (08:19)
[2016-10-18] MEDS: Acetaminophen TAB* 325 MG PO PRN (10:51)
[2016-10-18] MEDS ORDERED: LORazepam TAB(*) 1 MG ONE (14:31)
[2016-10-18] MEDS ORDERED: Ibuprofen TAB* 800 MG PO ONE (14:31)
--- NOTE | 2016-10-18 14:38 | PN ---
Subjective - Subjective Service Type: 62465 Hosp care 25 min moderate complexity Subjective: Robbin reports 8/10 pain in the hip, pain also in the spine, slightly improved , Ativan helped. Still not speaking, only a few words in past 24 hours, perhaps due to Ativan. Mood 'OK', no dangerous intent/plan, no psychosis. Family interested in continuing care outpatient. Objective - Appearance Appearance: Healthy Appearing Dysmorphic Features: No Hygiene: Normal Grooming: Well Kept - Behavior Psychomotor Activities: Normal Exhibits Abnormal Movement: No - Attitude and Relatedness Attitude and Relatedness: Cooperative Eye Contact: Good - Speech Quality: Unpressured - and absent, but fully communicative in writing - Mood Patient's Decription of Mood: "Okay" - Affect Observed Affect: Fair Affect Consistent with: Euthymia - Thought Process Patient's Thought Process: Coherent, Goal Directed Thought Content: No Passive Wish, No Suicidal Planning, No Homicidal Ideation, No Paranoid Ideation - Sensorium Experiencing Hallucinations: No, Sensorium is Clear Type of Hallucinations: Visual: No, Auditory: No, Command: No - Level of Consciousness Level of Consciousness: Alert Orientation: Yes Intact, Yes Orientated to Time, Yes Orientated to Place, Yes Orientated to Person - Impulse Control Impulse Control: Intact - Insight and Judgement Insight and Judgement: Fair - Group Participation Particating in Group Activities: No - Medication Management Medication Management Adherence: Yes Assessment - Assessment Merits Inpatient Hospitalization: Consolidate Improvements, For Discharge Planning Inpatient DSM-IV Dx: Post-traumatic stress disorder with dissociative exacerbation, report of history of depression as well, significant contribution of pain to psychiatric symptoms. Clinical Impression: Day 1 on unit, 10.11.16/Day 6 since presentation to ED on 10.06.16 Robbin Gallego is a 55-year-old [employer] who has been admitted after being found wandering on a highway in [place] and taken into custody by police, transferred into care of his family who brought him to this area. He reports a history of post-traumatic stress disorder and depression. He is starting to communicate by text and writing after being entirely noncommunicative through the weekend. He has pain issues from spinal surgeries. He has had prior care at [facility]. 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 We will be gathering further collateral from family and from previous providers and will be looking to gather more written information from Mr. Gallego. Aftercare is likely to be return to services at [facility] once he is stabilized here. Day 10.12. Robbin continues to communicate by writing here. He is reporting that his primary concern is pain. He has no recollection of how he lost his voice. He has had CT head imaging ruling out CT-visualizable acute intracranial process contributing to current presentation. He reports his would be best resource to better understand his psychiatric history, and might know if he has had a recent MRI giving more detailed head imaging. Day 08/23, 10.13. Robbin reports in writing continued depressed mood attributed to pain, with suicidal ideation. Collateral from his indicates that the precipitant event to his mutism, amnesia and wandering is her telling him she did not want to continue in their marriage because of text messages she found on his phone indicating sexual activity with others of unknown gender. He reports continued severe pain particularly in his left hip. Day 11/24, 10.16. Robbin is scheduled for MRI hip, and I added head/brain as there has been request of this by family and it is possible that there is something to be found by MRI that eluded CT scan resolution to tell us of a neurological cause of his mutism, though it seems more likely of purely psychological origin as dissociative phenomenon of PTSD under the stress of his accusing him of infidelity. He reported today that the trauma behind his PTSD was his spinal injuries in the [place]. He currently reports that his mind is spinning and he cannot give accurate report as to safety after hearing of his 's accusation , which he says is false. He and his family have also [facility] [place], which I have no objection to if this transfer can be done. We will be monitoring him closely for safety concerns. Day 12/25, 10.17.17 Robbin remains mute, depressed and suicidal, though with recent remission of plan. We will attempt imaging today of L hip and brain. I have informed MR technicians of Robbin' concern, and have ordered for him a 2d 1 mg dose of lorazepam in addition to the 1 mg IM dose given under hospitalist's order. Discharge planning is toward transfer to a [facility] unit nearer to his home per family request, though the odds of success seem low. More likely he will be discharged from this unit once safety concerns have remitted. Day 01/26, 5.3.17 Robbin has said a few words in the past 24 hours following increased dose of Ativan in preparation for an MR scan that had to be aborted due to inability to accomodate him to lie flat comfortably against spinal pain. He has reported full orientation, improved mood, and remission of passive SI with sustained absence of active SI all in the context of presumed distress at hearing from his that she was ending their marriage after discovering he had texts on his phone that she took to indicate he had been unfaithful with multiple partners of unknown gender. Family is interested in carrying forward his care in the outpatient setting. If all agree that safety concerns for travel are now minimal, we contemplate discharge home without resolution of mutism. Will address this with increased Ativan dose. Also have calls out to hospitalist and neurologist re pain management, utility of any further imaging or other workup for mutism, and IM versus PO Ativan against mutism as possibley etiologically related to catatonia. Plan - Plan Treatment Plan: Name: ROBBIN GALLEGO Birthdate: 1960 [id number] Continue current meds with increase in Ativan dose. Monitor MS and safety. Pain management per hospitalist, MRI hip failed: he refused imaging yesterday due to pain in laying flat. Medications: Current Medications Acetaminophen (Tylenol Tab*) 650 mg PO Q4H PRN PRN Reason: PAIN Last Admin: 10/18/16 10:51 Dose: 650 mg Al Hydrox/Mg Hydrox/Simethicone (Maalox Plus*) 30 ml PO Q4H PRN PRN Reason: INDIGESTION Bupropion HCl (Bupropion Xl*) 300 mg PO DAILY [facility] PRN Reason: Protocol Last Admin: 10/18/16 08:17 Dose: 300 mg Clonidine HCl (Catapres Tab*) 0.1 mg PO BEDTIME [facility] Last Admin: 10/17/16 21:08 Dose: 0.1 mg Cyclobenzaprine HCl (Flexeril Tab*) 10 mg PO TID PRN PRN Reason: SPASMS Last Admin: 10/15/16 20:32 Dose: 10 mg Diphenhydramine HCl (Benadryl Po*) 50 mg PO Q6H PRN PRN Reason: PRURITIS Docusate Sodium (Colace Cap*) 100 mg PO DAILY PRN PRN Reason: CONSTIPATION Last Admin: 10/10/16 21:05 Dose: 100 mg Ibuprofen (Motrin Tab*) 800 mg PO TID [facility] Last Admin: 10/18/16 08:18 Dose: 800 mg Lorazepam (Ativan Inj*) 1 mg IM Q24H PRN PRN Reason: ANXIETY Last Admin: 10/17/16 09:57 Dose: 1 mg Lorazepam (Ativan Tab(*)) 1 mg PO TID [facility] Last Admin: 10/18/16 08:18 Dose: 1 mg Nicotine (Nicotine Inhaler*) 10 mg INH Q2H PRN PRN Reason: CRAVING Omeprazole (Prilosec Cap*) 20 mg PO DAILY@0600 [facility] Last Admin: 10/18/16 06:09 Dose: 20 mg Sertraline HCl (Zoloft*) 50 mg PO DAILY [facility] Last Admin: 10/18/16 08:19 Dose: 50 mg - Discharge Plan Discharge Plan: Inpatient Hospitalization - if [facility], contemplating d/c to f/u outpatient per safety assessment
[2016-10-18] MEDS: cloNIDine TAB* 0.1 MG PO SCH (21:16)
--- NOTE | 2016-10-19 07:15 | ED ---
Fely Wade Michael, scribed for Blayne Finley MD on 10/06/16 at 2251 . Progress - Results/Orders Results/Orders: Ankle XR-Radiologist: no acute findings CXR- Radiologist: no acute findings Foot XR-Radiologist: no acute findings Pelvis XR- Radiologist: no acute findings Course/Dx - Course Course Of Treatment: 55 yr old male found wandering, car missing. He has PTSD from being in with depression. He was carrying a sign saying need ride to next exit: [place], [place]. Mental health to see for further evaluations. - Diagnoses Provider Diagnoses: Altered mental status, unspecified, Catatonia The documentation as recorded by the scribFely rdz Michael accurately reflects the service I personally performed and the decisions made by , Blayne Finley MD.
[2016-10-19] MEDS: Ibuprofen TAB* 800 MG PO SCH ×3 (09:36→21:35)
[2016-10-19] MEDS: LORazepam TAB(*) 1 MG PO SCH ×2 (09:36→21:34)
[2016-10-19] MEDS: Sertraline* 50 MG TAB PO SCH (09:36)
[2016-10-19] MEDS: Omeprazole CAP* 20 MG PO SCH (09:36)
[2016-10-19] MEDS: BuPROPion XL* 300 MG TAB.XL PO SCH (09:57)
--- NOTE | 2016-10-19 13:32 | PN ---
MHU: Group Therapy Note - Service Type Service Type: 43531 Group Psychotherapy - Cognitive Behavioral Group Therapy ( CBT):Patient attended CBT programming this morning and presented with flat affect that did not vary with discussion. Although responsive to direct prompts to respond to questions, patient did not engage in spontaneous conversation.
[2016-10-19] MEDS: Acetaminophen TAB* 325 MG PO PRN (16:05)
[2016-10-19] MEDS: cloNIDine TAB* 0.1 MG PO SCH (21:34)
[2016-10-20] MEDS: BuPROPion XL* 300 MG TAB.XL PO SCH (08:57)
[2016-10-20] MEDS: Omeprazole CAP* 20 MG PO SCH (08:57)
[2016-10-20] MEDS: LORazepam TAB(*) 1 MG PO SCH ×2 (08:58→23:05)
[2016-10-20] MEDS: Ibuprofen TAB* 800 MG PO SCH ×3 (08:58→23:06)
[2016-10-20] MEDS: Sertraline* 50 MG TAB PO SCH (08:58)
--- NOTE | 2016-10-20 13:36 | CONS ---
CONSULTATION NOTE: DATE OF CONSULT: 10/20/16 REASON FOR CONSULTATION: Left hip pain. HISTORY OF PRESENT ILLNESS: The patient is a 55-year-old man with depression and PTSD, not currently working, who was admitted on 10/06/16 to [facility] for mental status changes, question of catatonia, inability to speak. The patient complained of left hip pain of unclear duration and some moderate severity. The patient is a , who lives alone despite being in the [facility] area, who has seen multiple psychiatrists in the past for depression and major depressive disorder, whose became concerned when the patient was not at his home and he was eventually picked up alongside a highway , walking, with a sign articulating that the patient wished to go to [place], [place]. The police picked him up and released him into the custody of the patient's sister and mother, who live in the [place] area, and who brought him back to [place]. The patient's family reports that he was at his baseline on 10/04/16. No known recent trauma. 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 The patient presented to [facility] and was admitted to Psychiatry. Much of this history has been obtained from history and physical and consultation notes provided by the admitting service as well as Neurology. The patient was noted at admission to have some right foot swelling, but left hip pain was not mentioned until several days into his stay. History was compromised by the patient's lack of verbalism and to decreased written communication, at least at first. The patient describes bilateral hip pain, left worse than right. The patient's mother transmitted a question through the patient about the appropriateness of a cortisone injection, which the patient has not done. According to a consultation note, the patient takes naproxen and Percocet as needed as an outpatient for a variety of pain, chronic, that he has including bilateral hip pain, shoulder and neck pain. The patient has had multiple prior orthopedic surgical procedures including 2 cervical spine procedures and 1 shoulder surgery. The patient reported to another polymer materials consultant that the patient has a history of a herniated lumbar disk. The patient reports to me that while he has bilateral hip pain, he also has back pain that radiates down bilateral lower extremities. The patient reports that he feels some radiating pain as well as numbness and tingling twice per day briefly. The patient denies any appreciable weakness. He denies any change in bowel or bladder continence. He denies any perianal numbness. During this hospitalization, the patient had an EEG which showed no abnormalities as did a brain CT. Toxin screen was negative as well and Dr. Eubanks of Neurology expressed his opinion that he believes that the patient's symptoms are psychiatric. There has been a pending transfer to a [facility] in [place] discussed frequently. PAST MEDICAL HISTORY: 1. PTSD. 2. Depression. 3. Chronic pain, neck, back, shoulders. PAST SURGICAL HISTORY: 1. Cervical spine surgery x2. 2. Right knee surgery. 3. Right shoulder surgery. MEDICATIONS: At admission according to Dr. Montanez's History and Physical are: 1. Naproxen. 2. Wellbutrin. 3. Percocet. 4. Trazodone. 5. Zoloft. ALLERGIES: No known drug allergies. REVIEW OF SYSTEMS: The patient denies fevers, sweat, chills. The patient denies chest pain, palpitations. The patient denies shortness of breath. The patient does describe headaches as well as neck, shoulder, and back pain. PHYSICAL EXAMINATION: No acute distress. The patient seems comfortable, not in any obvious discomfort while walking and sitting. The patient's dress and hygiene seem appropriate for hospital inpatient. The patient walks with nonantalgic gait. Well-coordinated bilateral upper and lower extremities. The patient did not answer any questions verbally, but provided written answers for many questions about his history. He also was quite appropriate and good about following commands for physical exam. The patient had full range of motion with flexion, extension and lateral rotation of the lumbar spine. He described some pain with these maneuvers but was not visibly in pain. Negative straight leg raise, bilateral lower extremities. Neurovascular exam of bilateral lower extremities demonstrated 5/5 motor strength, L3 to S1 myotomes. Sensory exam to light touch was somewhat inconsistent. The patient described sensation being grossly intact to the L3-S1 dermatomes. However, while testing the L4, L5 and S1 dermatomes, the patient gave inconsistent answers about one foot having more sensation than the other, right versus left, left versus right. 1+ patellar and Achilles reflexes, symmetric. No clonus bilaterally. Examination of the left hip showed no soft tissue swelling or bruising. Skin is intact. No significant pain with log roll, left hip. Passive range of motion of the left hip was 110 degrees of flexion, 45 degrees of external and 20 degrees of internal rotation. At terminal ranges of motion, the patient did have significant discomfort. He expresses written and he clearly visibly was uncomfortable. Contralateral right hip exam demonstrated no soft tissue swelling or bruising. Skin intact. Symmetric range of motion with contralateral left hip. No significant pain with log roll or terminal ranges of motion. IMAGING: I reviewed left hip x-rays, 2 views, from 10/12/16. These demonstrate left hip joint space narrowing. There is no clear collapse of the femoral head or flattening, but I see a lucency in the superior humeral head, consistent with a crescent sign. Lateral view not as well visualized. The patient also had lumbar spine x-rays x6 obtained on 10/12/16 and I reviewed those. They demonstrate no fracture or spondylolisthesis. They do show only minimal vertebral body changes consistent with very mild degenerative disk disease. Neuroforamen seem fully patent with the exception of some narrowing at the L4-5, L5-S1 level. CT of the pelvis obtained 10/17/16 was reviewed. There is visible significant signal change in bilateral femoral heads, left more than right, consistent with subchondral collapse, consistent was avascular necrosis. Radiology also notes some sclerotic changes. ASSESSMENT: 1. Bilateral hip femoral head avascular necrosis. 2. Intermittent radiculopathy of bilateral lower extremities, with a question, by history, of herniated lumbar disk versus protruded disk. PLAN: 1. I spoke to the patient about management of avascular necrosis of the hip, femoral head. I reported that treatment generally includes NSAIDs such as naproxen as needed and physical therapy for strengthening of the muscles spanning the affected hips. The patient asked about cortisone injection into the joint. This is not a well-described nonoperative treatment modality as the pain is more secondary to the changes in the femoral head than it is to changes within the joint itself. I discussed there being intermediate treatment options for intermediate stage disease without femoral head collapse. These include bisphosphonates and a procedure, a core decompression of the femoral head with or without the use of stem cells or some stem cell equivalent. The literature is very mixed on the efficacy of these treatment options. The most definitive treatment option for later stage disease, or if early stage disease is particularly painful, is total hip arthroplasty. The patient had multiple questions about his eligibility for a joint replacement at such a young age, 55. I told the patient that under the correct circumstances, surgeons are comfortable doing a hip arthroplasty procedure in a patient that young. 2. I recommend that the patient follow up as an outpatient with the orthopedic surgeon regarding management of avascular necrosis of bilateral hips, left worse than right. This would include exploration of bisphosphonate therapy, core decompression, and hip arthroplasty procedures. 3. For now I recommend the patient continue taking naproxen as needed, and get a physical therapy consult for some strengthening of bilateral hips. I do not believe there is an indication for cortisone injection at this time. 4. The patient does have a complaint, albeit with much less pressing need according to symptoms, of bilateral lower extremity radiculopathy. This is something that could also be worked up as an outpatient, including possibly an MRI of the lumbar spine to look for sources of soft tissue and bony impingement on exiting lumbar nerve roots. As the patient does not have any weakness or persistent decreased sensation, nor does he have any signs or symptoms of cauda equina, there is no emergent or urgent need for treatment of this. 5. If the patient is to remain local, I recommend that he follow up with Dr. Gabriella Walter or Dr. Bassam Alex, 2 hip arthroplasty surgeons in my practice. Thank you for the consultation. [id number]/[facility] #: [id number] ISMAEL
--- NOTE | 2016-10-20 15:26 | PN ---
Subjective - Subjective Service Type: 53466 Hosp care 15 min low complexity Subjective: The patient remains electively mute but is otherwise calm and cooperative. Using a pen and paper he asks some questions about how his mind is affected by depression and PTSD. I note that he was seen by the Orthopedic service this morning, who are not recommending cortisone injections but rather outpatient follow up for his femoral avascular necrosis. The patient denies SI. Objective - Appearance Appearance: Well Developed/Nourished Dysmorphic Features: No Hygiene: Normal Grooming: Well Kept - Behavior Psychomotor Activities: Normal Exhibits Abnormal Movement: No - Attitude and Relatedness Attitude and Relatedness: Cooperative Eye Contact: Good - Mood Patient's Decription of Mood: "Okay" - Affect Observed Affect: Good Affect Consistent with: Euthymia - Thought Process Patient's Thought Process: Coherent Thought Content: No Passive Wish, No Suicidal Planning, No Homicidal Ideation, No Paranoid Ideation - Sensorium Experiencing Hallucinations: No, Sensorium is Clear Type of Hallucinations: Visual: No, Auditory: No, Command: No - Level of Consciousness Level of Consciousness: Alert Orientation: Yes Intact, Yes Orientated to Time, Yes Orientated to Place, Yes Orientated to Person - Impulse Control Impulse Control: Tenuous - Insight and Judgement Insight and Judgement: Fair - Group Participation Particating in Group Activities: Yes - Medication Management Medication Management Adherence: Yes Assessment - Assessment Merits Inpatient Hospitalization: Consolidate Improvements, Pending Safe DC Plan Inpatient DSM-IV Dx: Post-traumatic stress disorder with dissociative exacerbation, report of history of depression as well, significant contribution of pain to psychiatric symptoms. Clinical Impression: 55 y.o. , AA male [employer] admitted after his local family took him in following an incident in which he was found wandering the roadside, disorganized and not speaking. He remains electively mute and there were concerns over possible SI. Plan - Plan Treatment Plan: Name: VEE SWEET Birthdate: 1960 [id number] The patient is compliant with both medication and milieu therapies. His affect seems to be improved, although he is only speaking sparingly. Awaiting a safe discharge plan. Continued Medication Management: Different Medication Medications: Current Medications Acetaminophen (Tylenol Tab*) 650 mg PO Q4H PRN PRN Reason: PAIN Last Admin: 10/19/16 16:05 Dose: 650 mg Al Hydrox/Mg Hydrox/Simethicone (Maalox Plus*) 30 ml PO Q4H PRN PRN Reason: INDIGESTION Bupropion HCl (Bupropion Xl*) 300 mg PO DAILY [facility] PRN Reason: Protocol Last Admin: 10/20/16 08:57 Dose: 300 mg Clonidine HCl (Catapres Tab*) 0.1 mg PO BEDTIME [facility] Last Admin: 10/19/16 21:34 Dose: 0.1 mg Cyclobenzaprine HCl (Flexeril Tab*) 10 mg PO TID PRN PRN Reason: SPASMS Last Admin: 10/15/16 20:32 Dose: 10 mg Diphenhydramine HCl (Benadryl Po*) 50 mg PO Q6H PRN PRN Reason: PRURITIS Docusate Sodium (Colace Cap*) 100 mg PO DAILY PRN PRN Reason: CONSTIPATION Last Admin: 10/10/16 21:05 Dose: 100 mg Ibuprofen (Motrin Tab*) 800 mg PO TID [facility] Last Admin: 10/20/16 13:06 Dose: 800 mg Lorazepam (Ativan Inj*) 1 mg IM Q24H PRN PRN Reason: ANXIETY Last Admin: 10/17/16 09:57 Dose: 1 mg Lorazepam (Ativan Tab(*)) 2 mg PO BID [facility] Last Admin: 10/20/16 08:58 Dose: 2 mg Nicotine (Nicotine Inhaler*) 10 mg INH Q2H PRN PRN Reason: CRAVING Omeprazole (Prilosec Cap*) 20 mg PO DAILY@0600 [facility] Last Admin: 10/20/16 08:57 Dose: 20 mg Sertraline HCl (Zoloft*) 50 mg PO DAILY [facility] Last Admin: 10/20/16 08:58 Dose: 50 mg - Discharge Plan Discharge Plan: Inpatient Hospitalization
[2016-10-20] MEDS: cloNIDine TAB* 0.1 MG PO SCH (23:06)
[2016-10-21] MEDS: Omeprazole CAP* 20 MG PO SCH (06:15)
[2016-10-21] MEDS: Ibuprofen TAB* 800 MG PO SCH ×3 (09:29→20:25)
[2016-10-21] MEDS: BuPROPion XL* 300 MG TAB.XL PO SCH (09:30)
[2016-10-21] MEDS: Sertraline* 50 MG TAB PO SCH (09:31)
[2016-10-21] MEDS: LORazepam TAB(*) 1 MG PO SCH ×2 (09:32→20:24)
[2016-10-21] MEDS: cloNIDine TAB* 0.1 MG PO SCH (20:25)
[2016-10-22] MEDS: Omeprazole CAP* 20 MG PO SCH (06:31)
[2016-10-22] MEDS: LORazepam TAB(*) 1 MG PO SCH ×2 (10:08→22:28)
[2016-10-22] MEDS: Sertraline* 50 MG TAB PO SCH (10:09)
[2016-10-22] MEDS: BuPROPion XL* 300 MG TAB.XL PO SCH (10:09)
[2016-10-22] MEDS: Ibuprofen TAB* 800 MG PO SCH ×3 (10:09→22:27)
[2016-10-22] MEDS: cloNIDine TAB* 0.1 MG PO SCH (22:28)
[2016-10-23] MEDS: Omeprazole CAP* 20 MG PO SCH (06:11)
[2016-10-23] MEDS: Ibuprofen TAB* 800 MG PO SCH ×3 (08:14→21:59)
[2016-10-23] MEDS: LORazepam TAB(*) 1 MG PO SCH ×2 (08:14→21:59)
[2016-10-23] MEDS: Sertraline* 50 MG TAB PO SCH (08:14)
[2016-10-23] MEDS: BuPROPion XL* 300 MG TAB.XL PO SCH (08:15)
--- NOTE | 2016-10-23 11:01 | PN ---
MHU: Group Therapy Note - Service Type Service Type: 55607 Group Psychotherapy - Cognitive Behavioral Group Therapy ( CBT):Patient was attentive and participatory in CBT programming this morning, and remained in good behavioral control. Patient expressed positive insights regarding relevant treatment interventions and goals.
--- NOTE | 2016-10-23 15:59 | PN ---
Subjective - Subjective Service Type: 83522 Hosp care 15 min low complexity Subjective: Robbin continues to report anticipating overwhelming emotion when he begins to speak about events preceding hospitalization, and he and his family continue to suggest discharge to travel with family to [place] there and to present for inpatient admission. They will not accept transfer to a [facility] facility in this area, which is the option favored by the [place] per Ms Head. He is speaking a few words here and there, feels numb, and has high anxiety in anticipation of speaking more. He clarified today that his trauma leading to PTSD occurred in 2009 with 10 months paralyzed after treatment for his spinal injuries, and that this has led to distrust of the medical profession generally. Objective - Appearance Appearance: Well Developed/Nourished Dysmorphic Features: No Hygiene: Normal Grooming: Well Kept - Behavior Psychomotor Activities: Normal Exhibits Abnormal Movement: No - Attitude and Relatedness Attitude and Relatedness: Cooperative Eye Contact: Good - Speech Quality: Unpressured - speaking only a few words a day now - Mood Patient's Decription of Mood: "Anxious" - Affect Observed Affect: Depressed Affect Consistent with: Dysphoria - Thought Process Patient's Thought Process: Coherent, Goal Directed Thought Content: Yes Passive Wish, Yes Suicidal Planning - or at least anticipation, No Homicidal Ideation, No Paranoid Ideation - Sensorium Experiencing Hallucinations: No, Sensorium is Clear Type of Hallucinations: Visual: No, Auditory: No, Command: No - Level of Consciousness Level of Consciousness: Alert Orientation: Yes Intact, Yes Orientated to Time, Yes Orientated to Place, Yes Orientated to Person - Impulse Control Impulse Control: Intact - Insight and Judgement Insight and Judgement: Poor - Group Participation Particating in Group Activities: Yes - Medication Management Medication Management Adherence: Yes Assessment - Assessment Merits Inpatient Hospitalization: For Immediate Safety, For Stabilization, For Ongoing Evaluation, For Discharge Planning, Pending Safe DC Plan Inpatient DSM-IV Dx: Post-traumatic stress disorder with dissociative exacerbation, report of history of depression as well, significant contribution of pain to psychiatric symptoms. 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 He reports a history of post-traumatic stress disorder and depression. He is starting to communicate by text and writing after being entirely noncommunicative through the weekend. He has pain issues from spinal surgeries. He has had prior care at [facility]. 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 We will be gathering further collateral from family and from previous providers and will be looking to gather more written information from Mr. Gallego. Aftercare is likely to be return to services at [facility] once he is stabilized here. Day 10.12. Robbin continues to communicate by writing here. He is reporting that his primary concern is pain. He has no recollection of how he lost his voice. He has had CT head imaging ruling out CT-visualizable acute intracranial process contributing to current presentation. He reports his would be best resource to better understand his psychiatric history, and might know if he has had a recent MRI giving more detailed head imaging. Day 10.13. Robbin reports in writing continued depressed mood attributed to pain, with suicidal ideation. Collateral from his indicates that the precipitant event to his mutism, amnesia and wandering is her telling him she did not want to continue in their marriage because of text messages she found on his phone indicating sexual activity with others of unknown gender. He reports continued severe pain particularly in his left hip. Day 11/24, 10.16. Robbin is scheduled for MRI hip, and I added head/brain as there has been request of this by family and it is possible that there is something to be found by MRI that eluded CT scan resolution to tell us of a neurological cause of his mutism, though it seems more likely of purely psychological origin as dissociative phenomenon of PTSD under the stress of his accusing him of infidelity. He reported today that the trauma behind his PTSD was his spinal injuries in the [place]. He currently reports that his mind is spinning and he cannot give accurate report as to safety after hearing of his 's accusation , which he says is false. He and his family have also requested transfer to a [facility] in [place], which I have no objection to if this transfer can be done. We will be monitoring him closely for safety concerns. Day 12/25, 10.17.17 Robbin remains mute, depressed and suicidal, though with recent remission of plan. We will attempt imaging today of L hip and brain. I have informed MR technicians of Robbin' concern, and have ordered for him a 2d 1 mg dose of lorazepam in addition to the 1 mg IM dose given under hospitalist's order. Discharge planning is toward transfer to a [facility] unit nearer to his home per family request, though the odds of success seem low. More likely he will be discharged from this unit once safety concerns have remitted. Day 01/26, 5.3.17 Robbin has said a few words in the past 24 hours following increased dose of Ativan in preparation for an MR scan that had to be aborted due to inability to accomodate him to lie flat comfortably against spinal pain. He has reported full orientation, improved mood, and remission of passive SI with sustained absence of active SI all in the context of presumed distress at hearing from his that she was ending their marriage after discovering he had texts on his phone that she took to indicate he had been unfaithful with multiple partners of unknown gender. Family is interested in carrying forward his care in the outpatient setting. If all agree that safety concerns for travel are now minimal, we contemplate discharge home without resolution of mutism. Will address this with increased Ativan dose. Also have calls out to hospitalist and neurologist re pain management, utility of any further imaging or other workup for mutism, and IM versus PO Ativan against mutism as possibley etiologically related to catatonia. Day , 5.8.17 Robbin continues to fear an emotional breakdown increasing acute risk of suicide if he speaks about events prior to admission. We have counseled him that he had best speak here in that case, that it would therefore not be safe to discharge into the plan to present at a [place] for admission that he and his mother have proposed. I have been informed by the social group worker on the case, Ms Head, that she has convinced him to speak with his Emigdio on the phone , and that he is speaking with her as I compose this note. Plan - Plan Treatment Plan: Name: ROBBIN GALLEGO Birthdate: 1960 [id number] Continue current meds. Monitor MS and safety. Pain management per hospitalist. Support in processing emotions released after speaking with : staff aware. Medications: Current Medications Acetaminophen (Tylenol Tab*) 650 mg PO Q4H PRN PRN Reason: PAIN Last Admin: 10/19/16 16:05 Dose: 650 mg Al Hydrox/Mg Hydrox/Simethicone (Maalox Plus*) 30 ml PO Q4H PRN PRN Reason: INDIGESTION Bupropion HCl (Bupropion Xl*) 300 mg PO DAILY [facility] PRN Reason: Protocol Last Admin: 10/23/16 08:15 Dose: 300 mg Clonidine HCl (Catapres Tab*) 0.1 mg PO BEDTIME [facility] Last Admin: 10/22/16 22:28 Dose: 0.1 mg Cyclobenzaprine HCl (Flexeril Tab*) 10 mg PO TID PRN PRN Reason: SPASMS Last Admin: 10/15/16 20:32 Dose: 10 mg Diphenhydramine HCl (Benadryl Po*) 50 mg PO Q6H PRN PRN Reason: PRURITIS Docusate Sodium (Colace Cap*) 100 mg PO DAILY PRN PRN Reason: CONSTIPATION Last Admin: 10/10/16 21:05 Dose: 100 mg Ibuprofen (Motrin Tab*) 800 mg PO TID [facility] Last Admin: 10/23/16 12:59 Dose: 800 mg Lorazepam (Ativan Inj*) 1 mg IM Q24H PRN PRN Reason: ANXIETY Last Admin: 10/17/16 09:57 Dose: 1 mg Lorazepam (Ativan Tab(*)) 2 mg PO BID [facility] Last Admin: 10/23/16 08:14 Dose: 2 mg Nicotine (Nicotine Inhaler*) 10 mg INH Q2H PRN PRN Reason: CRAVING Omeprazole (Prilosec Cap*) 20 mg PO DAILY@0600 [facility] Last Admin: 10/23/16 06:11 Dose: 20 mg Sertraline HCl (Zoloft*) 50 mg PO DAILY [facility] Last Admin: 10/23/16 08:14 Dose: 50 mg - Discharge Plan Discharge Plan: Outpatient Follow Up
[2016-10-23] MEDS: cloNIDine TAB* 0.1 MG PO SCH (22:00)
[2016-10-24] MEDS: Omeprazole CAP* 20 MG PO SCH (05:54)
[2016-10-24] MEDS: LORazepam TAB(*) 1 MG PO SCH ×2 (08:28→23:05)
[2016-10-24] MEDS: Sertraline* 50 MG TAB PO SCH (08:29)
[2016-10-24] MEDS: Ibuprofen TAB* 800 MG PO SCH ×3 (08:29→23:05)
[2016-10-24] MEDS: BuPROPion XL* 300 MG TAB.XL PO SCH (08:30)
--- NOTE | 2016-10-24 11:20 | PN ---
MHU: Group Therapy Note - Service Type Service Type: 82063 Group Psychotherapy - Cognitive Behavioral Group Therapy ( CBT):Patient was attentive and participatory in CBT programming this morning, and remained in good behavioral control. Patient expressed positive insights regarding relevant treatment interventions and goals. Robbin continues to communicate through writing. He is attentive in programming, often taking notes. Presents with good eye contact and is euythmic.
--- NOTE | 2016-10-24 21:47 | CONS ---
PSYCHOLOGICAL REPORT: DATE OF CONSULTATION: 10/20/16 DATE OF DICTATION: 10/24/16 REASON FOR REFERRAL: Robbin was referred for personality testing secondary to concerns regarding psychotic symptoms, specifically what appears to be selective mutism. TEST ADMINISTERED: Robbin completed the [place] Multiphasic Personality Inventory-2 (MMPI-2). He was given feedback regarding test result in an individual conversation. RELEVANT HISTORY: Robbin is a who was found wandering on a highway in [place] and eventually was released by police and taken by his family to the [facility] where his mother and sister lives. He has a significant history of posttraumatic stress disorder and depression and also has had significant spinal cord trauma. Presently, he describes pain as his primary concern, but once engaged in the interview process, Robbin was very forthcoming above the events leading to his eventual hospitalization. Although , he did not speak with this business writer, he communicated effectively through writing. He describes marital duress as the main source of his conflict, describing difficulties both he and his were having in regards to intimacy. His apparently found some risque texts he had shared with friends of his, apparently both male and female, leading to his what appears to be a dissociative condition where he was found wandering on a highway. 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 He described historically having a very loving relationship with his and they were very active around her interest regarding basketball particularly. He describes more recent problems beginning as his begin to experience menopause. 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 He takes notes in CBT programing and initiates interaction with this business writer. His thought processes impress as clear and coherent currently, although concerns remain about insight regarding his selective mutism. Secondary reinforcers appear to be a significant factor here as Robbin appears to fear discharge secondary to having to try to ameliorate problems with his . He is very hopeful of reconciliation, but he is apprehensive that his will not take him back. He expresses some suicidal thoughts in this context. Robbin does express positive interest in his hobbies, especially in taking care of his car collection. He is interactive with peers and appreciates staff interventions as well. TEST RESULTS: Although Robbin does not elevate emotional stress skills to an extreme degree, he only has one moderate elevation on an emotional stress scale (T=80). His other scoring on fluidity indicators are subclinical. Thus, this appears to be reasonably valid endorsement style. This is somewhat surprising as his clinical scales are quite profoundly elevated with a neurotic triad being elevated between T scores of 85 and 100 with depression falling right at 90, with his anxiety index and schizophrenia scales both approximating T score of 100. His paranoia endorsement also is at 90. Of note, his hypomania scale is quite low (T=40). Concerns regarding test results show extreme levels of anxiety and significant depression with concerns regarding possible dissociative symptoms is exacerbating an elevation on the schizophrenia scale. Robbin is clear and coherent in conversation with a lingering symptom of selective mutism. IMPRESSIONS AND RECOMMENDATIONS: Robbin initially had been interacting with staff and peers, has improved markedly since his admission. He impresses as having good insight regarding relevant history and events, but concerns remain about judgment in regards to what impresses his selective mutism and disinclination towards discharge. Robbin did speak with his by phone showing that he is capable of speech, but seems to be in fear that his communication will exacerbate his problems. Clinical impression involves around major depressive disorder with secondary concerns regarding posttraumatic disorder characterized by dissociative experiences. [id number]/[facility] #: [id number] ISMAEL
[2016-10-24] MEDS: cloNIDine TAB* 0.1 MG PO SCH (23:05)
[2016-10-25] MEDS: Omeprazole CAP* 20 MG PO SCH (05:47)
[2016-10-25] MEDS: BuPROPion XL* 300 MG TAB.XL PO SCH (09:23)
[2016-10-25] MEDS: LORazepam TAB(*) 1 MG PO SCH ×3 (09:25→21:40)
[2016-10-25] MEDS: Ibuprofen TAB* 800 MG PO SCH ×3 (09:25→21:27)
[2016-10-25] MEDS: Sertraline* 50 MG TAB PO SCH (09:25)
--- NOTE | 2016-10-25 11:25 | PN ---
MHU: Group Therapy Note - Service Type Service Type: [id number] Group Psychotherapy - Cognitive Behavioral Group Therapy ( CBT):Patient was attentive and participatory in CBT programming this morning, and remained in good behavioral control. Patient expressed positive insights regarding relevant treatment interventions and goals.
--- NOTE | 2016-10-25 17:03 | PN ---
Subjective - Subjective Service Type: [id number] Hosp care 15 min low complexity Subjective: Robbin is speaking again, with recall of onset of mutism following submissive interaction with state patrol officer. He is hopeful he can repair his marriage after 's discovery of his involvement in dominance/submission culture as experimentation without sexual activity, per his report due to erectile dysfunction and desire to not be physically unfaithful. He would like to return to his home in [place], says his sister can get him there. He denies now any active SI. Hip pain improved to 7/10. Objective - Appearance Appearance: Healthy Appearing Dysmorphic Features: No Hygiene: Normal Grooming: Well Kept - Behavior Psychomotor Activities: Normal Exhibits Abnormal Movement: No - Attitude and Relatedness Attitude and Relatedness: Well Related Eye Contact: Good - Speech Quality: Unpressured Latencies: Normal Quantity: Appropriate - Mood Patient's Decription of Mood: "Subdued" - Affect Observed Affect: Fair Affect Consistent with: Euthymia - Thought Process Patient's Thought Process: Coherent, Goal Directed Thought Content: No Passive Wish, No Suicidal Planning, No Homicidal Ideation, No Paranoid Ideation - Sensorium Experiencing Hallucinations: No, Sensorium is Clear Type of Hallucinations: Visual: No, Auditory: No, Command: No - Level of Consciousness Level of Consciousness: Alert Orientation: Yes Intact, Yes Orientated to Time, Yes Orientated to Place, Yes Orientated to Person - Impulse Control Impulse Control: Intact - Insight and Judgement Insight and Judgement: Fair - Group Participation Particating in Group Activities: Yes Group Participation Comments: still only writing in groups, no speech - Medication Management Medication Management Adherence: Yes Assessment - Assessment Merits Inpatient Hospitalization: For Stabilization, Consolidate Improvements, For Discharge Planning Inpatient DSM-IV Dx: Post-traumatic stress disorder with dissociative exacerbation, report of history of depression as well, significant contribution of pain to psychiatric symptoms. 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 He reports a history of post-traumatic stress disorder and depression. He is starting to communicate by text and writing after being entirely noncommunicative through the weekend. He has pain issues from spinal surgeries. He has had prior care at [facility]. 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 We will be gathering further collateral from family and from previous providers and will be looking to gather more written information from Mr. Gallego. Aftercare is likely to be return to services at [facility] once he is stabilized here. Day 10.12. Robbin continues to communicate by writing here. He is reporting that his primary concern is pain. He has no recollection of how he lost his voice. He has had CT head imaging ruling out CT-visualizable acute intracranial process contributing to current presentation. He reports his would be best resource to better understand his psychiatric history, and might know if he has had a recent MRI giving more detailed head imaging. Day 10.13. Robbin reports in writing continued depressed mood attributed to pain, with suicidal ideation. Collateral from his indicates that the precipitant event to his mutism, amnesia and wandering is her telling him she did not want to continue in their marriage because of text messages she found on his phone indicating sexual activity with others of unknown gender. He reports continued severe pain particularly in his left hip. Day 11/24, 10.16. Robbin is scheduled for MRI hip, and I added head/brain as there has been request of this by family and it is possible that there is something to be found by MRI that eluded CT scan resolution to tell us of a neurological cause of his mutism, though it seems more likely of purely psychological origin as dissociative phenomenon of PTSD under the stress of his accusing him of infidelity. He reported today that the trauma behind his PTSD was his spinal injuries in the [place]. He currently reports that his mind is spinning and he cannot give accurate report as to safety after hearing of his 's accusation , which he says is false. He and his family have also requested transfer to a [facility] in [place], which I have no objection to if this transfer can be done. We will be monitoring him closely for safety concerns. Day 12/25, 2.17 Robbin remains mute, depressed and suicidal, though with recent remission of plan. We will attempt imaging today of L hip and brain. I have informed MR technicians of Robbin' concern, and have ordered for him a 2d 1 mg dose of lorazepam in addition to the 1 mg IM dose given under hospitalist's order. Discharge planning is toward transfer to a [facility] unit nearer to his home per family request, though the odds of success seem low. More likely he will be discharged from this unit once safety concerns have remitted. Day 01/26, 5.3.17 Robbin has said a few words in the past 24 hours following increased dose of Ativan in preparation for an MR scan that had to be aborted due to inability to accomodate him to lie flat comfortably against spinal pain. He has reported full orientation, improved mood, and remission of passive SI with sustained absence of active SI all in the context of presumed distress at hearing from his that she was ending their marriage after discovering he had texts on his phone that she took to indicate he had been unfaithful with multiple partners of unknown gender. Family is interested in carrying forward his care in the outpatient setting. If all agree that safety concerns for travel are now minimal, we contemplate discharge home without resolution of mutism. Will address this with increased Ativan dose. Also have calls out to hospitalist and neurologist re pain management, utility of any further imaging or other workup for mutism, and IM versus PO Ativan against mutism as possibley etiologically related to catatonia. Day , 5.8.17 Robbin continues to fear an emotional breakdown increasing acute risk of suicide if he speaks about events prior to admission. We have counseled him that he had best speak here in that case, that it would therefore not be safe to discharge into the plan to present at a [place] for admission that he and his mother have proposed. I have been informed by the social media content manager on the case, Ms Head, that she has convinced him to speak with his Emigdio on the phone , and that he is speaking with her as I compose this note. Day Robbin is now speaking, and denies any dangerous intent or plan. He would like to go home with his sister, hopes to repair his marriage with couples' counseling and his own psychotherapy. Physical complaints are stable. Plan - Plan Treatment Plan: Name: ROBBIN GALLEGO Birthdate: 1960 [id number] Continue current meds with half dose Ativan. Monitor MS and safety. Pain management per hospitalist. Plan for discharge. Medications: Current Medications Acetaminophen (Tylenol Tab*) 650 mg PO Q4H PRN PRN Reason: PAIN Last Admin: 10/19/16 16:05 Dose: 650 mg Al Hydrox/Mg Hydrox/Simethicone (Maalox Plus*) 30 ml PO Q4H PRN PRN Reason: INDIGESTION Bupropion HCl (Bupropion Xl*) 300 mg PO DAILY [facility] PRN Reason: Protocol Last Admin: 10/25/16 09:23 Dose: 300 mg Clonidine HCl (Catapres Tab*) 0.1 mg PO BEDTIME [facility] Last Admin: 10/24/16 23:05 Dose: 0.1 mg Cyclobenzaprine HCl (Flexeril Tab*) 10 mg PO TID PRN PRN Reason: SPASMS Last Admin: 10/15/16 20:32 Dose: 10 mg Diphenhydramine HCl (Benadryl Po*) 50 mg PO Q6H PRN PRN Reason: PRURITIS Docusate Sodium (Colace Cap*) 100 mg PO DAILY PRN PRN Reason: CONSTIPATION Last Admin: 10/10/16 21:05 Dose: 100 mg Ibuprofen (Motrin Tab*) 800 mg PO TID [facility] Last Admin: 10/25/16 14:21 Dose: 800 mg Lorazepam (Ativan Inj*) 1 mg IM Q24H PRN PRN Reason: ANXIETY Last Admin: 10/17/16 09:57 Dose: 1 mg Lorazepam (Ativan Tab(*)) 2 mg PO BID [facility] Last Admin: 10/25/16 09:25 Dose: 2 mg Nicotine (Nicotine Inhaler*) 10 mg INH Q2H PRN PRN Reason: CRAVING Omeprazole (Prilosec Cap*) 20 mg PO DAILY@0600 [facility] Last Admin: 10/25/16 05:47 Dose: 20 mg Sertraline HCl (Zoloft*) 50 mg PO DAILY [facility] Last Admin: 10/25/16 09:25 Dose: 50 mg - Discharge Plan Discharge Plan: Outpatient Follow Up
[2016-10-25] MEDS: cloNIDine TAB* 0.1 MG PO SCH (21:27)
[2016-10-26] MEDS: Omeprazole CAP* 20 MG PO SCH (05:41)
[2016-10-26 09:00] VITALS: BP 124/76
[2016-10-26] MEDS: Sertraline* 50 MG TAB PO SCH (09:17)
[2016-10-26] MEDS: BuPROPion XL* 300 MG TAB.XL PO SCH (09:17)
[2016-10-26] MEDS: LORazepam TAB(*) 1 MG PO SCH (09:18)
[2016-10-26] MEDS: Ibuprofen TAB* 800 MG PO SCH ×2 (09:18→13:27)
--- NOTE | 2016-10-26 11:09 | PN ---
MHU: Group Therapy Note - Service Type Service Type: 33817 Group Psychotherapy - Cognitive Behavioral Group Therapy ( CBT):Patient was attentive and participatory in CBT programming this morning, and remained in good behavioral control. Patient expressed positive insights regarding relevant treatment interventions and goals.
--- NOTE | 2016-10-26 14:31 | DS ---
Subjective - Subjective Service Types: 00616 [facility] Day Mgmt simple under 30 min Discharge Date: 10/26/16 Subjective: Robbin is much improved, with report of stable remission of suicidal thoughts, reduced physical pain, and most notably he is speaking freely with full range of emotional tonality and a bright affect, often smiling and sometimes laughing. He reports feeling safe and ready for discharge. 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 He reports adequate pain management with only ibuprofen now. Objective - Appearance Appearance: Well Developed/Nourished, Healthy Appearing Dysmorphic Features: No Hygiene: Normal Grooming: Well Kept - Behavior Psychomotor Activities: Normal Exhibits Abnormal Movement: No - Attitude and Relatedness Attitude and Relatedness: Well Related Eye Contact: Good - Speech Quality: Unpressured Latencies: Normal Quantity: Appropriate - Mood Patient's Decription of Mood: "A little anxious" - said with a smile - Affect Observed Affect: Good Affect Consistent with: Euthymia - Thought Process Patient's Thought Process: Coherent, Goal Directed Thought Content: No Passive Wish, No Suicidal Planning, No Homicidal Ideation, No Paranoid Ideation - Sensorium Experiencing Hallucinations: No, Sensorium is Clear Type of Hallucinations: Visual: No, Auditory: No, Command: No - Level of Consciousness Level of Consciousness: Alert Orientation: Yes Intact, Yes Orientated to Time, Yes Orientated to Place, Yes Orientated to Person - Impulse Control Impulse Control: Intact - Insight and Judgement Insight and Judgement: Fair - Group Participation Particating in Group Activities: Yes - Medication Management Medication Management Adherence: Yes Treatment Course & Assessment Clinical Course & Impression: Day 1 on unit, 10.11.16/Day 6 since presentation to ED on 10.06.16 Robbin Gallego is a 55-year-old [place] who has been admitted after being found wandering on a [place] in [place] and taken into custody by police, transferred into care of his family who brought him to this area. He reports a history of post-traumatic stress disorder and depression. He is starting to communicate by text and writing after being entirely noncommunicative through the weekend. He has pain issues from spinal surgeries. He has had prior [facility] at [facility]. 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 Day 2, 10.12.16 Robbin continues to communicate by writing only. He is reporting that his primary concern is pain. He has no recollection of how he lost his voice. He has had CT head imaging ruling out CT-visualizable acute intracranial process contributing to current presentation. He reports his would be best resource to better understand his psychiatric history. Day 08/23, 428.17 Robbin reports in writing continued depressed mood attributed to pain, with suicidal ideation. Collateral from his indicates that the precipitant event to his mutism, amnesia and wandering is her telling him she did not want to continue in their marriage because of text messages she found on his phone indicating sexual activity with others of unknown gender. He reports continued severe pain particularly in his left hip. Day 11/24, 5.1.17 Robbin reported today that the trauma behind his PTSD was his spinal injuries in the [place]. He currently reports that his mind is spinning and he cannot give accurate report as to safety after hearing of his 's accusation, which he says is false. Day 01/26, 5.3.17 Robbin has said a few words in the past 24 hours following increased dose of Ativan in preparation for an MR scan that had to be aborted due to inability to accomodate him to lie flat comfortably against spinal pain. He has reported full orientation, improved mood, and remission of passive SI with sustained absence of active SI all in the context of presumed distress at hearing from his that she was ending their marriage after discovering he had texts on his phone that she took to indicate he had been unfaithful with multiple partners of unknown gender. Day , 5.8.17 Robbin continues to fear an emotional breakdown increasing acute risk of suicide if he speaks about events prior to admission. We have counseled him that he had best speak here in that case, that it would therefore not be safe to discharge with plan that he and his mother have proposed to present at a [facility] for admission . Day , 5.9.17 Robbin spoke with his and gained clarity on alvarez elements of his pre- hospital course into a dissociative fugue. He reports that the essence of his indiscretions leading to his asking for divorce was exploring dominance/ submission with other men without sex. He says he avoided women to keep from being unfaithful to his . He reports he was fascinated at what people would do in a submissive role to him, for example ordering him dinner and only eating when he allowed them to. Further details can be found in Ms Head's note from 10.24.16 and late entry note from 10.25.16. Day , 10.25.16 Robbin is now speaking, and denies any dangerous intent or plan. He would like to go home with his sister, hopes to repair his marriage with couples' counseling and his own psychotherapy. Physical complaints are stable. , 10.26.16 Robbin is cleared for discharge. He is assessed as at no acutely increased risk of harm to self or others, and capable of adequate self-care to avoid harm. He reports full remission of all psychiatric symptoms that gave rise to safety concerns, specifically denying any suicidal ideation, and reporting not anticipation of recurrence with resolution of his dissociative fugue. He reports that the gap in his memory led to apprehension of suicidality with recovery of the memories temporarily lost. He will leave with his sister and stay with her in the [place] area, then travel back to [place] on Sunday. He will live in his home near the [facility] in [place] where he will present for aftercare, as per the policies of intake to [facility] outpatient care. He will continue on the medications on which he stabilized here, with plan to taper off Ativan under guidance from his [facility] presc[facility]. His Zoloft dose was reduced, with possible benefit of recovery from erectile dysfunction and decreased libido. He will also [facility] up with [facility] providers for his [facility] and spine problems. Merits Inpatient Hospitalization: No Clear for Discharge: Adequate Clinical Respons, Acceptable Safety Profile, Low Utility of Inpt Care Inpatient DSM-IV Dx: Post-traumatic stress disorder with dissociative exacerbation, report of history of depression as well, significant contribution of pain to psychiatric symptoms. - [employer] MR and Personality Disorder: Deferred - [employer] Medical Illness: spinal injuries with continued pain. avascular necrosis of left femoral head - [employer] IV Stressors: marriage in jeopardy, likely ending Family: conflicts with family of origin and with , but all are supportive Primary Support Group: sister, seeking return of support from , mother and other family members - [employer] V GNO-Lzfnru-Tkzot: 65 Estimate of Highest-Past Year: 70 Discharge Planning - Discharge Planning Discharge Plan: Outpatient Follow Up Outpatient Program: [facility] Recommendations for Continuing Care: Medication Management, Psychotherapy, Primary Care Followup, Specialty Followup - ortho re hip, spine Medications: Bupropion HCl (Bupropion Xl*) 300 mg PO DAILY MARIANGEL PRN Reason: Protocol Last Admin: 10/26/16 09:17 Dose: 300 mg Clonidine HCl (Catapres Tab*) 0.1 mg PO BEDTIME MARIANGEL Last Admin: 10/25/16 21:27 Dose: 0.1 mg Cyclobenzaprine HCl (Flexeril Tab*) 10 mg PO TID PRN PRN Reason: SPASMS Last Admin: 10/15/16 20:32 Dose: 10 mg Ibuprofen (Motrin Tab*) 800 mg PO TID [facility] Last Admin: 10/26/16 13:27 Dose: 800 mg Lorazepam (Ativan Tab(*)) 1 mg PO 0900,2100 [facility] Last Admin: 10/26/16 09:18 Dose: 1 mg Sertraline HCl (Zoloft*) 50 mg PO DAILY [facility] Last Admin: 10/26/16 09:17 Dose: 50 mg Escripts sent to [facility] [place] in [facility] for 30 day supply of all of the above. Search Terms: Robbin Gallego, 1960 Search Date: 10/26/2016 02:31:05 PM The Drug Utilization Report below displays all of the controlled substance prescriptions, if any, that your patient has filled in the last twelve months. The information displayed on this report is compiled from pharmacy submissions to the Department, and accurately reflects the information as submitted by the pharmacies. This report was requested by: Dawson Montanez | Reference #: [id number] There are no results for the search terms that you entered. Discharge Planning: Prescriptions provided for discharge [x] Yes [] No Follow up care details as per social work arrangements. Patient response to discharge plan: [x] eager for discharge [x] agreeable with discharge plan [] ambivalent about discharge [] disagrees with discharge today
== END 2016-10-26 15:00 | disposition home or self-care (01) | DRG 885 ==
LOC: ED 20:41 → BSU 10-10 17:27 → UNDODISIN 10-18 12:10
PROVIDERS: ADMIT Psychiatry & Neurology Psychiatry; ATTEND Psychiatry & Neurology Psychiatry
DX: F20.2 Catatonic schizophrenia (principal); F44.1 Dissociative fugue; R45.851 Suicidal ideations; R41.82 Altered mental status, unspecified; F43.11 Post-traumatic stress disorder, acute; F32.9 Major depressive disorder, single episode, unspecified; M54.9 Dorsalgia, unspecified; M25.552 Pain in left hip; Z79.1 Long term (current) use of non-steroidal anti-inflammatories (NSAID); Z79.891 Long term (current) use of opiate analgesic; Z79.899 Other long term (current) drug therapy; Z88.8 Allergy status to other drugs, medicaments and biological substances
CPT/HCPCS: 36415; 70450; 71020; 72110; 72170; 72192; 80048; 80053; 80307; 80320; 80329; 81003; 82550; 84132; 84443; 84484; 85025; 85652; 86140; 90853; 93005; 95819; 96102; 99222; 99231; 99232; 99233; 99238; 99282; A9270-GY; G0480; J2060